=== PATIENT | female | born 1940 | race Caucasian/White ===

== ENCOUNTER 2018-09-24 15:22 | Observation (INO) | payer MEDICARE ==
[2018-09-24] MEDS ORDERED: SODIUM CHLORIDE 0.9% 1,000 ML IV STA (16:04)
--- NOTE | 2018-09-24 16:06 | ED ---
Dizziness HPI - General Chief Complaint: Dizziness Stated Complaint: LBP Time Seen by Provider: 09/24/18 15:35 Source: patient Mode of arrival: wheelchair Limitations: no limitations - History of Present Illness Initial Comments: Patient is a 77-year-old female presenting for lightheadedness and low blood pressure. Patient states that this morning, her blood pressure was 90/50 and she was so lightheaded and dizzy. She denies any chest pain or shortness breath as well as nausea/vomiting/diarrhea. She states that she had knee surgery back in mid August but has not had any complications from that. - Related Data Home Medications Medication Instructions Recorded Confirmed metFORMIN HCL [Glucophage] 1,000 mg PO BID 05/20/14 09/24/18 Aspirin EC [Ecotrin] 325 mg PO DAILY PRN 09/24/18 09/24/18 Levothyroxine Sodium [Synthroid] 50 mcg PO DAILY 09/24/18 09/24/18 Losartan Potassium 50 mg PO DAILY 09/24/18 09/24/18 Potassium Chloride 8 meq PO DAILY 09/24/18 09/24/18 Simvastatin [Zocor] 20 mg PO HS 09/24/18 09/24/18 Triamterene/Hydrochlorothiazid 1 tab PO DAILY 09/24/18 09/24/18 [Triamterene-Hctz 75-50 mg Tab] Allergies Allergy/AdvReac Type Severity Reaction Status Date / Time codeine Allergy Unknown Verified 09/24/18 16:33 Review of Systems ROS Statement: Those systems with pertinent positive or pertinent negative responses have been documented in the HPI. Constitutional: Negative for chills, fatigue and fever. HENT: Negative for congestion. Respiratory: Negative for chest tightness, and wheezing. Negative for cough and positive for shortness breath Cardiovascular: Negative for chest pain and palpitations. Gastrointestinal: Negative for abdominal pain. Negative for abdominal distention, diarrhea, nausea and vomiting. Genitourinary: Negative for dysuria. Musculoskeletal: Negative for back pain, neck pain and neck stiffness. Skin: Negative for color change. Neurological: Negative for dizziness, speech difficulty, weakness and positive for light-headedness. Psychiatric/Behavioral: Negative for agitation and confusion. Negative for anxiety ROS Other: All systems not noted in ROS Statement are negative. Past Medical History Past Medical History: Cancer, Diabetes Mellitus, Hypertension Additional Past Medical History / Comment(s): cervical cancer History of Any Multi-Drug Resistant Organisms: None Reported Past Surgical History: Orthopedic Surgery Past Psychological History: No Psychological Hx Reported Smoking Status: Current every day smoker Past Alcohol Use History: None Reported Past Drug Use History: None Reported General Exam - General Exam Comments Initial Comments: Constitutional: Pt appears well-developed and well-nourished. No distress. Head: Normocephalic and atraumatic. Eyes: EOM are normal. Neck: Normal range of motion. Neck supple. Cardiovascular: Tachycardia, regular rhythm, S1 normal, S2 normal and normal heart sounds. Exam reveals no gallop and no friction rub. No murmur heard. Pulmonary/Chest: Effort normal and breath sounds normal. No tachypnea and no bradypnea. No respiratory distress. No wheezes or rales noted. Abdominal: Soft. Bowel sounds are normal. Pt exhibits no shifting dullness, no distension, no pulsatile liver, no fluid wave, no abdominal bruit and no ascites. There is no rigidity, no rebound, no guarding, no tenderness at McBurney's point and negative Haynes's sign. There is no tenderness. Musculoskeletal: Normal range of motion. Neurological: Pt is alert and oriented to person, place, and time. No cranial nerve deficit. Skin: Skin is warm and dry. No rash noted. Pt is not diaphoretic. No erythema. No pallor. Psychiatric: Pt has a normal mood and affect. Pt behavior is normal. Thought content normal. Limitations: no limitations Course Vital Signs 09/24/18 09/24/18 09/24/18 15:35 15:38 15:40 Temperature 98.2 F Pulse Rate 105 H 98 Pulse Rate [ Sitting Pecan Picker] Pulse Rate [ Standing Pecan Picker ] Pulse Rate [ Supine Pecan Picker] Respiratory 14 17 Rate Blood Pressure 142/77 142/77 142/77 Blood Pressure [Sitting] Blood Pressure [Standing] Blood Pressure [Supine] O2 Sat by Pulse 86 L 98 98 Oximetry 09/24/18 09/24/18 09/24/18 15:50 16:00 16:30 Temperature Pulse Rate 105 H 85 89 Pulse Rate [ Sitting Pecan Picker] Pulse Rate [ Standing Pecan Picker ] Pulse Rate [ Supine Pecan Picker] Respiratory 20 16 14 Rate Blood Pressure 112/88 109/72 114/65 Blood Pressure [Sitting] Blood Pressure [Standing] Blood Pressure [Supine] O2 Sat by Pulse 98 97 98 Oximetry 09/24/18 09/24/18 09/24/18 16:35 17:00 17:30 Temperature Pulse Rate 77 80 Pulse Rate [ 95 Sitting Pecan Picker] Pulse Rate [ 105 H Standing Pecan Picker ] Pulse Rate [ 72 Supine Pecan Picker] Respiratory 16 20 Rate Blood Pressure 102/73 146/80 Blood Pressure 114/65 [Sitting] Blood Pressure 127/81 [Standing] Blood Pressure 98/50 [Supine] O2 Sat by Pulse 97 99 Oximetry EKG Findings - EKG Comments: EKG Findings:: EKG shows normal sinus rhythm with a rate of 97 bpm, SD interval 190, QRS 82, QTC 474. Medical Decision Making - Medical Decision Making Laboratory studies showed that there is no significant leukocytosis and chest x- ray was unremarkable. However, it was thought that patient was a high risk for pulmonary embolism and d-dimer was performed and showed that it was 2.15. However, GFR was too low to support a CT PE scan. Because of this, VQ scan was performed and showed intermediate probability for pulmonary embolism. It was also indicated that although there are no mismatched defects to suggest pulmonary embolism there are multiple indeterminate that she defects of the uppe r lungs with no corresponding chest x-ray abnormality. Because of this, patient was empirically heparinized or PE.Explained all labs and diagnostic test results and that we will admit patient to hospital. Pt is agreeable to plan and case has been discussed with Dr. Lopez and they agree to accept the pt. - Lab Data Result diagrams: 09/24/18 15:50 09/24/18 15:50 Lab Results 09/24/18 09/24/18 09/24/18 Range/Units 15:50 15:50 15:50 WBC 9.7 (3.8-10.6) k/uL RBC 4.39 (3.80-5.40) m/uL Hgb 13.4 (11.4-16.0) gm/dL Hct 41.5 (34.0-46.0) % MCV 94.5 (80.0-100.0) fL MCH 30.4 (25.0-35.0) pg MCHC 32.2 (31.0-37.0) g/dL RDW 13.7 (11.5-15.5) % Plt Count 264 (150-450) k/uL Neutrophils % 72 % Lymphocytes % 20 % Monocytes % 5 % Eosinophils % 2 % Basophils % 1 % Neutrophils # 7.0 (1.3-7.7) k/uL Lymphocytes # 1.9 (1.0-4.8) k/uL Monocytes # 0.5 (0-1.0) k/uL Eosinophils # 0.2 (0-0.7) k/uL Basophils # 0.1 (0-0.2) k/uL PT 9.8 (9.0-12.0) sec INR 0.9 (<1.2) APTT 18.6 L (22.0-30.0) sec D-Dimer 2.15 H (<0.60) mg/L FEU Sodium 139 (137-145) mmol/L Potassium 4.2 (3.5-5.1) mmol/L Chloride 102 (98-107) mmol/L Carbon Dioxide 22 (22-30) mmol/L Anion Gap 15 mmol/L BUN 30 H (7-17) mg/dL Creatinine 1.36 H (0.52-1.04) mg/dL Est GFR (CKD-EPI)AfAm 44 (>60 ml/min/1.73 sqM) Est GFR (CKD-EPI)NonAf 38 (>60 ml/min/1.73 sqM) Glucose 170 H (74-99) mg/dL Calcium 9.7 (8.4-10.2) mg/dL Magnesium 1.3 L (1.6-2.3) mg/dL Total Bilirubin 0.7 (0.2-1.3) mg/dL AST 23 (14-36) U/L ALT 16 (9-52) U/L Alkaline Phosphatase 63 (38-126) U/L Troponin I (0.000-0.034) ng/mL NT-Pro-B Natriuret Pep pg/mL Total Protein 6.8 (6.3-8.2) g/dL Albumin 4.2 (3.5-5.0) g/dL 09/24/18 09/24/18 Range/Units 15:50 15:50 WBC (3.8-10.6) k/uL RBC (3.80-5.40) m/uL Hgb (11.4-16.0) gm/dL Hct (34.0-46.0) % MCV (80.0-100.0) fL MCH (25.0-35.0) pg MCHC (31.0-37.0) g/dL RDW (11.5-15.5) % Plt Count (150-450) k/uL Neutrophils % % Lymphocytes % % Monocytes % % Eosinophils % % Basophils % % Neutrophils # (1.3-7.7) k/uL Lymphocytes # (1.0-4.8) k/uL Monocytes # (0-1.0) k/uL Eosinophils # (0-0.7) k/uL Basophils # (0-0.2) k/uL PT (9.0-12.0) sec INR (<1.2) APTT (22.0-30.0) sec D-Dimer (<0.60) mg/L FEU Sodium (137-145) mmol/L Potassium (3.5-5.1) mmol/L Chloride (98-107) mmol/L Carbon Dioxide (22-30) mmol/L Anion Gap mmol/L BUN (7-17) mg/dL Creatinine (0.52-1.04) mg/dL Est GFR (CKD-EPI)AfAm (>60 ml/min/1.73 sqM) Est GFR (CKD-EPI)NonAf (>60 ml/min/1.73 sqM) Glucose (74-99) mg/dL Calcium (8.4-10.2) mg/dL Magnesium (1.6-2.3) mg/dL Total Bilirubin (0.2-1.3) mg/dL AST (14-36) U/L ALT (9-52) U/L Alkaline Phosphatase (38-126) U/L Troponin I <0.012 (0.000-0.034) ng/mL NT-Pro-B Natriuret Pep 135 pg/mL Total Protein (6.3-8.2) g/dL Albumin (3.5-5.0) g/dL Disposition Clinical Impression: Pulmonary embolism Disposition: ADMITTED IP TO THIS [facility] Condition: Fair Referrals: Martín Bojorquez MD [Primary Care Provider] - 1-2 days Decision to Admit Reason: Admit from EC Decision Date: 09/24/18 Decision Time: 20:35
[2018-09-24 16:31] LABS: Basophils # (A) 0.1 k/uL (0-0.2); Basophils % (A) 1 %; Eosinophils # (A) 0.2 k/uL (0-0.7); Eosinophils % (A) 2 %; HCT 41.5 % (34.0-46.0); HGB 13.4 gm/dL (11.4-16.0); Lymphocytes # (A) 1.9 k/uL (1.0-4.8); Lymphocytes % (A) 20 %; MCH 30.4 pg (25.0-35.0); MCHC 32.2 g/dL (31.0-37.0); MCV 94.5 fL (80.0-100.0); Monocytes # (A) 0.5 k/uL (0-1.0); Monocytes % (A) 5 %; Neutrophils % (A) 72 %; Platelet Count 264 k/uL (150-450); RBC 4.39 m/uL (3.80-5.40); RDW 13.7 % (11.5-15.5); WBC 9.7 k/uL (3.8-10.6)
--- NOTE | 2018-09-24 16:45 | XR ---
EXAMINATION TYPE: XR chest 2V DATE OF EXAM: 09/24/2018 COMPARISON: NONE HISTORY: Hypertension and chest pain TECHNIQUE: Frontal and lateral views of the chest are obtained. FINDINGS: There is no focal air space opacity, pleural effusion, or pneumothorax seen. The cardiac silhouette size is within normal limits. The osseous structures are intact. Mild multilevel degener ative changes of the thoracic spine are noted. Pulmonary hyperinflation and biapical lucency represen t underlying COPD. IMPRESSION: No acute cardiopulmonary process.
[2018-09-24 16:50] LABS: Albumin 4.2 g/dL (3.5-5.0); Calcium 9.7 mg/dL (8.4-10.2); Magnesium 1.3 mg/dL (1.6-2.3); Total Bilirubin 0.7 mg/dL (0.2-1.3); Total Protein 6.8 g/dL (6.3-8.2)
[2018-09-24 16:51] LABS: Potassium 4.2 mmol/L (3.5-5.1)
[2018-09-24 16:58] LABS: INR 0.9 (<1.2); Prothrombin Time 9.8 sec (9.0-12.0)
[2018-09-24 17:10] LABS: D-Dimer 2.15 mg/L FEU (<0.60); Partial Thromboplastin Time 18.6 sec (22.0-30.0)
--- NOTE | 2018-09-24 19:51 | NM ---
EXAMINATION TYPE: NM pul vent and perfuse DATE OF EXAM: 09/24/2018 COMPARISON: Chest x-ray of the same date HISTORY: Chest pain TECHNIQUE: Utilizing inhalation of 71.2 mCi Tc 99m DTPA aerosol and intravenous injection of 5.29 mC i of Tc 99m MAA, ventilation and perfusion images are acquired post injection in multiple projections . FINDINGS: There are numerous small wedge-shaped matched defects in the upper lungs, right greater than left. Th e defects are slightly more pronounced on the ventilation than perfusion. No central radiotracer clum ping is seen. The lateral views are slightly obscured by the patient's arms. Patchy radiotracer uptak e within the medial left lung appears nonsegmental. No large mismatched defects. IMPRESSION: Intermediate probability for pulmonary embolism. Although there are no mismatch defects to suggest pu lmonary embolus there are multiple indeterminant matched defects of the upper lungs with no correspon ding chest radiograph abnormality.
[2018-09-24] MEDS ORDERED: HEPARIN SODIUM,PORCINE 10,000 UNIT/ML 1 ML VIAL IV ONE (20:12)
[2018-09-24] MEDS ORDERED: HEPARIN SODIUM,PORCINE 5,000 UNIT/ML 1 ML VIAL IV PRN (20:12)
[2018-09-24] MEDS: HEPARIN SOD,PORK IN 0.45% NACL 25,000 UNIT in 0.45% NACL 1 250ML.BAG IV SCH (20:51)
[2018-09-24] MEDS ORDERED: NALOXONE 0.4 MG/ML 1 ML VIAL IV PRN (22:21)
[2018-09-24] MEDS ORDERED: MAGNESIUM HYDROXIDE 2,400 MG/10 ML CUP PO PRN (23:21)
[2018-09-24] MEDS ORDERED: ALPRAZolam 0.25 MG TAB PO PRN (23:21)
[2018-09-24] MEDS ORDERED: LACTULOSE 20 GM/30 ML CUP PO PRN (23:21)
[2018-09-24] MEDS ORDERED: ACETAMINOPHEN TAB 325 MG TAB PO PRN (23:21)
[2018-09-24] MEDS ORDERED: MELATONIN 3 MG TABLET PO PRN (23:21)
[2018-09-24] MEDS ORDERED: ONDANSETRON 4 MG/2 ML VIAL IVP PRN (23:21)
[2018-09-24] MEDS: SODIUM CHLORIDE 0.9% 1,000 ML IV SCH (23:52)
[2018-09-25] MEDS ORDERED: CALCIUM CARBONATE 500 MG CHEWABLE PO PRN
[2018-09-25 06:24] LABS: Glucose,Whole Blood 130 mg/dL (75-99)
[2018-09-25] MEDS: INSULIN ASPART (NovoLOG) 100 UNIT/ML VIAL SQ SCH ×6 (06:29→21:41)
[2018-09-25] MEDS: LEVOTHYROXINE 50 MCG TAB PO SCH (06:56)
[2018-09-25 07:58] LABS: Basophils % (A) 1 %; Eosinophils # (A) 0.2 k/uL (0-0.7); Eosinophils % (A) 3 %; HCT 37.6 % (34.0-46.0); HGB 11.9 gm/dL (11.4-16.0); Lymphocytes # (A) 2.8 k/uL (1.0-4.8); Lymphocytes % (A) 43 %; MCH 30.3 pg (25.0-35.0); MCHC 31.6 g/dL (31.0-37.0); MCV 95.9 fL (80.0-100.0); Mean Platelet Volume 6.6; Monocytes # (A) 0.3 k/uL (0-1.0); Monocytes % (A) 5 %; Neutrophils # (A) 3.1 k/uL (1.3-7.7); Neutrophils % (A) 47 %; Platelet Count 214 k/uL (150-450); RBC 3.92 m/uL (3.80-5.40); RDW 13.5 % (11.5-15.5); WBC 6.6 k/uL (3.8-10.6)
[2018-09-25] MEDS: metFORMIN 500 MG TAB PO SCH ×2 (08:41→21:32)
[2018-09-25] MEDS: POTASSIUM CHLORIDE ER 10 MEQ TAB.ER.PRT PO SCH (08:41)
[2018-09-25] MEDS ORDERED: LOSARTAN 50 MG TAB PO SCH (09:00)
[2018-09-25] MEDS ORDERED: TRIAMTERENE-HCTZ 75-50MG 1 EACH TAB PO SCH (09:00)
[2018-09-25 11:44] LABS: Glucose,Whole Blood 96 mg/dL (75-99)
[2018-09-25 12:12] LABS: Calcium 9.4 mg/dL (8.4-10.2)
--- NOTE | 2018-09-25 12:12 | P.CNPUL ---
History of Present Illness Consult date: 09/25/18 Requesting physician: Eleazar Lopez Reason for consult: other Chief complaint: Dizziness, hypotension History of present illness: This is a 77-year-old white female patient of Dr. Bojorquez, with past medical history of hypertension, diabetes mellitus, who presented emergency department 09/24/2018 with complaints of extreme dizziness, a relatively low blood pressure for the patient 98/50. Patient denied any nausea vomiting or diarrhea. She recently underwent left knee surgery by Dr. Hernandez, subsequently she was discharged to a subacute rehab and recently discharged from the rehab a week and a half ago. Currently staying with her son. She has been weightbearing and ambulatory. He did have a follow-up appointment with Dr. Hernandez, and couple weeks ago she had some fluid withdrawn from her knee in the office, unsure of the amount in the color. Denied any shortness of breath, did have some mild palpitations, no hemoptysis, no chest pain. She does have some swelling in her right leg, and her right knee, no calf tenderness or swelling. No fever or chills, no recent illness. Lab work showed normal CBC, electrolytes were within normal limits, BUN was 30 and creatinine is 1.36, troponin was negative 1, proBNP was 135, ALT AST and alkaline phosphatase were well within normal limits. D-dimer was elevated at 2.15, VQ scan was completed which showed intermediate probability for pulmonary embolism, although there was no mismatch defect to suggest pulmonary embolus there were multiple indeterminant matched defects of the upper lungs. EKG showed normal sinus rhythm with evidence of inferior infarct of undetermined age. Chest x-ray was negative. She was given IV hydration with 1 L of 0.9 normal saline, and her maintenance IV fluids are infusing at a rate of 75 ML per hour, was started on IV heparin for concern of possible pulmonary embolism. On today's exam she is resting comfortably in bed, no complaints of lightheadedness or dizziness, no syncope, no chest pain, room air pulse ox is 98%, blood pressures 105/55. Review of Systems All systems: negative Constitutional: Denies chills, Denies fever Eyes: denies blurred vision, denies pain Ears, nose, mouth and throat: Denies headache, Denies sore throat Cardiovascular: Denies chest pain, Denies shortness of breath Respiratory: Denies cough Gastrointestinal: Denies abdominal pain, Denies diarrhea, Denies nausea, Denies vomiting Genitourinary: Denies dysuria, Denies hematuria Musculoskeletal: Denies myalgias Integumentary: Denies pruritus, Denies rash Neurological: Denies numbness, Denies weakness Psychiatric: Denies anxiety, Denies depression Endocrine: Denies fatigue, Denies weight change Past Medical History Past Medical History: Cancer, Diabetes Mellitus, Hypertension, Thyroid Disorder Additional Past Medical History / Comment(s): cervical cancer, arthritis History of Any Multi-Drug Resistant Organisms: None Reported Past Surgical History: Orthopedic Surgery Additional Past Surgical History / Comment(s): 3 knee replacements and revisions Past Anesthesia/Blood Transfusion Reactions: No Reported Reaction Past Psychological History: No Psychological Hx Reported Smoking Status: Former smoker Past Alcohol Use History: None Reported Additional Past Alcohol Use History / Comment(s): pt. quit smoking 30 years ago Past Drug Use History: None Reported - Past Family History Mother Family Medical History: Cancer, Dementia Additional Family Medical History / Comment(s): pancreatic cancer and alzheimers Medications and Allergies Home Medications Medication Instructions Recorded Confirmed Type metFORMIN HCL [Glucophage] 1,000 mg PO BID 05/20/14 09/24/18 History Aspirin EC [Ecotrin] 325 mg PO DAILY PRN 09/24/18 09/24/18 History Levothyroxine Sodium [Synthroid] 50 mcg PO DAILY 09/24/18 09/24/18 History Losartan Potassium 50 mg PO DAILY 09/24/18 09/24/18 History Potassium Chloride 8 meq PO DAILY 09/24/18 09/24/18 History Simvastatin [Zocor] 20 mg PO HS 09/24/18 09/24/18 History Triamterene/Hydrochlorothiazid 1 tab PO DAILY 09/24/18 09/24/18 History [Triamterene-Hctz 75-50 mg Tab] Allergies Allergy/AdvReac Type Severity Reaction Status Date / Time codeine Allergy Unknown Verified 09/24/18 16:33 Physical Exam Vitals: Vital Signs Temp Pulse Pulse Pulse Pulse Resp BP 09/25/18 08:00 97.8 F 74 18 09/25/18 04:00 98.4 F 82 17 09/25/18 00:00 74 17 09/24/18 22:38 98.2 F 74 17 03/09/19 22:31 78 16 103/54 03/09/19 20:54 71 16 131/61 09/24/18 17:30 80 20 146/80 09/24/18 17:00 77 16 102/73 09/24/18 16:35 95 105 H 72 09/24/18 16:30 89 14 114/65 09/24/18 16:00 85 16 109/72 09/24/18 15:50 105 H 20 112/88 09/24/18 15:40 98 17 142/77 09/24/18 15:38 98.2 F 105 H 14 142/77 09/24/18 15:35 142/77 BP BP BP Pulse Ox 09/25/18 08:00 105/55 98 09/25/18 04:00 116/63 97 09/25/18 00:00 09/24/18 22:38 93/42 95 09/24/18 22:31 98 09/24/18 20:54 97 09/24/18 17:30 99 09/24/18 17:00 97 09/24/18 16:35 114/65 127/81 98/50 09/24/18 16:30 98 09/24/18 16:00 97 09/24/18 15:50 98 09/24/18 15:40 98 09/24/18 15:38 98 09/24/18 15:35 86 L Intake and Output 09/24/18 09/25/18 09/25/18 21:59 06:59 14:59 Intake Total 240 Balance 240 Intake: Intake, IV Titration Amount Heparin Sod,Pork in 0.45% NaCl 25,000 unit In 0.45 % NaCl 1 250ml.bag @ 18 UNITS/KG/HR 12.6 mls/hr IV .[id number] [facility] Rx#: [id number] Oral 240 Other: Voiding Method Toilet # Voids Weight GENERAL EXAM: Alert, pleasant, 77-year-old white female, on room air, comfortable in no apparent distress. HEAD: Normocephalic/atraumatic. EYES: Normal reaction of pupils, equal size. Conjunctiva pink, sclera white. NOSE: Clear with pink turbinates. THROAT: No erythema or exudates. NECK: No masses, no JVD, no thyroid enlargement, no adenopathy. CHEST: No chest wall deformity. Symmetrical expansion. LUNGS: Equal air entry with no crackles, wheeze, rhonchi or dullness. CVS: Regular rate and rhythm, normal S1 and S2, no gallops, no murmurs, no rubs ABDOMEN: Soft, nontender. No hepatosplenomegaly, normal bowel sounds, no guarding or rigidity. EXTREMITIES: No clubbing, mild nonpitting left knee and left leg edema, no cyanosis, 2+ pulses and upper and lower extremities. No calf tenderness MUSCULOSKELETAL: Muscle strength and tone normal. SPINE: No scoliosis or deformity SKIN: No rashes CENTRAL NERVOUS SYSTEM: Alert and oriented -3. No focal deficits, tone is normal in all 4 extremities. PSYCHIATRIC: Alert and oriented -3. Appropriate affect. Intact judgment and insight. Results - Laboratory Findings CBC and BMP: 09/25/18 07:16 09/24/18 15:50 PT/INR, D-dimer PT 9.8 sec (9.0-12.0) 09/24/18 15:50 INR 0.9 (<1.2) 09/24/18 15:50 D-Dimer 2.15 mg/L FEU (<0.60) H 09/24/18 15:50 Abnormal lab findings: Abnormal Labs 09/24/18 09/24/18 09/25/18 15:50 15:50 03:00 APTT 18.6 L 96.1 H D-Dimer 2.15 H BUN 30 H Creatinine 1.36 H Glucose 170 H POC Glucose (mg/dL) Magnesium 1.3 L 09/25/18 06:13 APTT D-Dimer BUN Creatinine Glucose POC Glucose (mg/dL) 130 H Magnesium - Diagnostic Findings Chest x-ray: report reviewed, image reviewed Additional studies: EKG reviewed Assessment and Plan Plan: Assessment: #1. Dizziness, relative hypotension blood pressure of 90/50 could be related to smith #2. Acute kidney injury due to dehydration #3. Elevated d-dimer, and a VQ scan showed intermediate probability for pulmonary embolus with no mismatch defects to suggest pulmonary embolus. Showed multiple indeterminate mass defects of the upper lungs, could be related to patient's history of emphysema/COPD #4. Recent left knee surgery within a half ago at [facility] by Dr. Hernandez, and subsequent left arthrocentesis #5. History of bilateral replacements #6. Hypertension #7. Diabetes mellitus #8. History of cervical cancer #9. COPD, seen on previous CT chest/abdomen/pelvis #10. Former smoker Plan: We'll continue with IV hydration, if the renal profile recovers we'll consider CT angios chest. Obtain Doppler ultrasound of the lower extremities to rule out DVT. We'll continue with heparin drip for now. VQ scan showed only intermediate probability for PE, and d-dimer elevation is nonspecific, doubt possibility of PE, but we'll continue with anticoagulation. Patient's vitals are stable, no fever or chills, she denies any cough, denies any chest pain, denies any shortness of breath or hemoptysis, no hypoxemia, she is not tachycardic. We'll continue current medical treatment I performed a history & physical examination of the patient and discussed their management with my nurse practitioner, Rere Licona. I reviewed the nurse practitioner's note and agree with the documented findings and plan of care. Lung sounds are positive for clear. The findings and the impression was discussed with the patient. I attest to the documentation by the nurse practitioner. Time with Patient: Greater than 30
--- NOTE | 2018-09-25 12:33 | US ---
EXAMINATION TYPE: US venous doppler duplex LE DATE OF EXAM: 09/25/2018 12:16 PM COMPARISON: NONE CLINICAL HISTORY: questionable pe recent lt tka. Possible PE, left knee replacement in [place] SIDE PERFORMED: Bilateral TECHNIQUE: The lower extremity deep venous system is examined utilizing real time linear array sonog martín with graded compression, doppler sonography and color-flow sonography. VESSELS IMAGED: External Iliac Vein (EIV) Common Femoral Vein Deep Femoral Vein Greater Saphenous Vein * Femoral Vein Popliteal Vein Small Saphenous Vein * Proximal Calf Veins (* superficial vessels) There is normal flow, compressibility, vascular waveforms. Right Leg: Negative for DVT Left Leg: Negative for DVT IMPRESSION: No evident deep venous thrombosis at or above the knees, follow-up as indicated
[2018-09-25] MEDS: HEPARIN SOD,PORK IN 0.45% NACL 25,000 UNIT in 0.45% NACL 1 250ML.BAG IV SCH ×2 (15:17→17:44)
[2018-09-25 16:15] LABS: Glucose,Whole Blood 133 mg/dL (75-99)
--- NOTE | 2018-09-25 16:23 | HP ---
HISTORY AND PHYSICAL DATE OF ADMISSION: September 24, 2018 DATE OF SERVICE: September 25, 2018. PRESENTING COMPLAINT: Dizzy. HISTORY OF PRESENTING COMPLAINT: This is a pleasant 77 -year-old patient of Dr. Bojorquez. Chronic stable medical conditions include diabetes, hypertension, hypothyroid, osteoarthritis. On August 16, patient did undergo left knee replacement at an outside hospital. Yesterday morning, she felt really dizzy, especially when she was moving about. There was no change in vision. No focal weakness. No nausea, vomiting. No headache. No change in speech. After several hours, the symptoms actually got better. The patient when presented, blood pressure was 142/77. The patient in the ER, did have a V/Q scan that shows intermediate probability. He was started on IV heparin to rule out a PE for possible PE. Admitted for the same. Pulmonary was consulted. The patient had minimal swelling of the left leg. No more than she has had after surgery. There was no shortness of breath. No pleuritic chest pain. REVIEW OF SYSTEMS: CONSTITUTIONAL: None. RESPIRATORY: None. CARDIOVASCULAR: None. GASTROINTESTINAL: None. GENITOURINARY: None. MUSCULOSKELETAL: Arthritic pain in joints. DERMATOLOGICAL, HEMATOLOGIC, LYMPHATICS: none. PSYCHIATRY none. NEUROLOGICAL: None. HEENT as above. PAST MEDICAL HISTORY: Diabetes mellitus type 2, hypertension, hypothyroid, cervical cancer, osteoarthritis. PAST SURGICAL HISTORY: replacement, left knee replacement August 16. SOCIAL HISTORY: The patient stopped smoking 30 years ago. Lives by herself. No alcohol. FAMILY HISTORY: Dementia, pancreatic cancer, Alzheimer's. HOME MEDICATIONS: 1. Zocor 20 mg q.h.s. 2. Synthroid 50 mcg a day. 3. Aspirin 325 p.o. daily p.r.n. 4. Glucophage 1000 mg p.o. b.i.d. 5. Triamterene hydrochlorothiazide 75/50 1 tab p.o. daily. 6. Potassium 8 mEq a day. 7. Losartan 50 mg p.o. daily. ALLERGIES: CODEINE. PHYSICAL EXAMINATION: Vital signs on presentation: Temperature 98.2, pulse 105, respiration 14, blood pressure 112/88, pulse ox 98% on room air. GENERAL APPEARANCE: Average built, sitting up, a bit tired. EYES: Pupils are equal. Conjunctivae normal. HEENT: External appearance of nose and ears normal. Oral cavity normal. NECK: JVD not raised. Mass not palpable. RESPIRATORY: Effort normal. Lungs are clear. CARDIOVASCULAR: First and second sounds normal. No edema. ABDOMEN: Soft, nontender. Liver and spleen not palpable. LYMPHATIC: No lymph nodes palpable in the neck and axilla. PSYCHIATRY: Alert and oriented x3. Mood and affect normal. NEUROLOGICAL: Pupils equal. Cranial nerves grossly intact. Power and sensation grossly intact. MUSCULOSKELETAL: Evidence of osteoarthritis especially in the hands. Incision of the left knee is healing well. Minimal left leg swelling compared to the right. INVESTIGATIONS: White count 9.7, hemoglobin 13.4, potassium 4.2, BUN 30, creatinine 1.36. EKG tracing personally reviewed by me showed normal sinus rhythm. Chest x-ray film personally reviewed by me shows some hyperinflation. Lung lockett are clear. V/Q scan shows intermediate probability showing match defects. Venous Doppler lower extremity both legs negative for DVT. ASSESSMENT: 1. Episode of acute dizziness, positional, possibly benign paroxysmal positional vertigo, which did improve. 2. Probably acute renal failure with a creatinine 1.36. The patient being on diuretics and also on ARBS. 3. Diabetes mellitus type 2 on oral hypoglycemics. 4. Essential hypertension. 5. Hypothyroidism. 6. Primary osteoarthritis. 7. Intermediate V/Q scan. The patient denies any pulmonary symptoms. I highly doubt the patient has got PE. Pulmonary consult was also done. 8. IV heparin monitoring. At this point, we will hydrate the patient. We will hold off patient's diuretics that she takes at home Cozaar. If renal function is better by tomorrow, we will do CT chest PE protocol to rule out PE. In the meantime, we will keep the patient on IV heparin. Care was discussed with the patient. Questions were answered. Copy to Dr. Bojorquez. [id number] / IJN: [id number] /
[2018-09-25 21:24] LABS: Glucose,Whole Blood 133 mg/dL (75-99)
[2018-09-25] MEDS: ATORVASTATIN 10 MG TAB PO SCH (21:43)
[2018-09-25] MEDS: SODIUM CHLORIDE 0.9% 1,000 ML IV SCH (21:44)
[2018-09-26 06:20] LABS: Glucose,Whole Blood 136 mg/dL (75-99)
[2018-09-26] MEDS: INSULIN ASPART (NovoLOG) 100 UNIT/ML VIAL SQ SCH ×4 (06:25→20:10)
[2018-09-26 06:30] LABS: Basophils % (A) 1 %; Eosinophils # (A) 0.2 k/uL (0-0.7); Eosinophils % (A) 4 %; HCT 34.5 % (34.0-46.0); HGB 11.1 gm/dL (11.4-16.0); Lymphocytes # (A) 2.1 k/uL (1.0-4.8); Lymphocytes % (A) 45 %; MCH 30.7 pg (25.0-35.0); MCHC 32.2 g/dL (31.0-37.0); MCV 95.3 fL (80.0-100.0); Mean Platelet Volume 7.2; Monocytes # (A) 0.3 k/uL (0-1.0); Monocytes % (A) 6 %; Neutrophils % (A) 42 %; Platelet Count 189 k/uL (150-450); RBC 3.62 m/uL (3.80-5.40); RDW 13.6 % (11.5-15.5); WBC 4.7 k/uL (3.8-10.6)
[2018-09-26 07:47] LABS: Calcium 9.7 mg/dL (8.4-10.2); Potassium 4.2 mmol/L (3.5-5.1)
[2018-09-26] MEDS: POTASSIUM CHLORIDE ER 10 MEQ TAB.ER.PRT PO SCH (07:59)
[2018-09-26] MEDS: LEVOTHYROXINE 50 MCG TAB PO SCH (07:59)
[2018-09-26] MEDS: metFORMIN 500 MG TAB PO SCH (08:01)
[2018-09-26 11:14] LABS: Glucose,Whole Blood 135 mg/dL (75-99)
[2018-09-26] MEDS: HEPARIN SOD,PORK IN 0.45% NACL 25,000 UNIT in 0.45% NACL 1 250ML.BAG IV SCH (13:53)
[2018-09-26] MEDS: SODIUM CHLORIDE 0.9% 1,000 ML IV SCH (13:55)
--- NOTE | 2018-09-26 14:25 | P.PN ---
Subjective Progress Note Date: 09/26/18 Principal diagnosis: Dizziness, hypotension, acute kidney injury, elevated d-dimer, possible PE This is a 77-year-old white female patient of Dr. Bojorquez, with past medical history of hypertension, diabetes mellitus, who presented emergency department 09/24/2018 with complaints of extreme dizziness, a relatively low blood pressure for the patient 98/50. Patient denied any nausea vomiting or diarrhea. She recently underwent left knee surgery by Dr. Hernandez, subsequently she was discharged to a subacute rehab and recently discharged from the rehab a week and a half ago. Currently staying with her son. She has been weightbearing and ambulatory. He did have a follow-up appointment with Dr. Hernandez, and couple weeks ago she had some fluid withdrawn from her knee in the office, unsure of the amount in the color. Denied any shortness of breath, did have some mild palpitations, no hemoptysis, no chest pain. She does have some swelling in her right leg, and her right knee, no calf tenderness or swelling. No fever or chills, no recent illness. Lab work showed normal CBC, electrolytes were within normal limits, BUN was 30 and creatinine is 1.36, troponin was negative 1, proBNP was 135, ALT AST and alkaline phosphatase were well within normal limits. D-dimer was elevated at 2.15, VQ scan was completed which showed intermediate probability for pulmonary embolism, although there was no mismatch defect to suggest pulmonary embolus there were multiple indeterminant matched defects of the upper lungs. EKG showed normal sinus rhythm with evidence of inferior infarct of undetermined age. Chest x-ray was negative. She was given IV hydration with 1 L of 0.9 normal saline, and her maintenance IV fluids are infusing at a rate of 75 ML per hour, was started on IV heparin for concern of possible pulmonary embolism. On today's exam she is resting comfortably in bed, no complaints of lightheadedness or dizziness, no syncope, no chest pain, room air pulse ox is 98%, blood pressures 105/55. On 09/26/2018 patient seen in follow-up on selective care unit, she is resting comfortably in bed, no pulmonary complaints, no chest pain, no shortness of breath, she is on room air pulse ox of 100%, hemodynamically stable, no complaints of lightheadedness or dizziness, she still getting IV hydration, will 0.9 normal seen at a rate of 75 ML per hour, and today's labs show improvement in patient's renal profile, with BUN down to 18, and creatinine is at 1.08. She remains on heparin drip weight-based protocol for possibility of pulmonary embolism. Lung sounds are clear to auscultation, lower extremity Dopplers were negative for DVTs. Objective - Vital Signs Vital signs: Vital Signs Temp 98.2 F 09/26/18 12:00 Pulse 68 09/26/18 12:00 Resp 16 09/26/18 12:00 BP 127/73 09/26/18 12:00 Pulse Ox 100 09/26/18 12:00 Intake & Output 09/25/18 09/26/18 09/26/18 18:59 06:59 18:59 Intake Total 999.365 1943.513 Output Total 600 Balance -38.256 1701.513 Weight 75.7 kg Intake: IV 470 Invasive Line 2 20 Sodium Chloride 0.9% 1, 450 000 ml @ 75 mls/hr IV . [id number] RHEA Rx#:[id number] Intake, IV Titration 81.744 149.513 Amount Heparin Sod,Pork in 0.45% 81.744 149.513 NaCl 25,000 unit In 0.45 % NaCl 1 250ml.bag @ 18 UNITS/KG/HR 12.6 mls/hr IV .[id number] RHEA Rx#: [id number] Oral 480 1082 Output: Urine 600 Other: Voiding Method Toilet Toilet Toilet # Voids 1 - Exam GENERAL EXAM: Alert, pleasant, 77-year-old white female, on room air, comfortable in no apparent distress. HEAD: Normocephalic/atraumatic. EYES: Normal reaction of pupils, equal size. Conjunctiva pink, sclera white. NOSE: Clear with pink turbinates. THROAT: No erythema or exudates. NECK: No masses, no JVD, no thyroid enlargement, no adenopathy. CHEST: No chest wall deformity. Symmetrical expansion. LUNGS: Equal air entry with no crackles, wheeze, rhonchi or dullness. CVS: Regular rate and rhythm, normal S1 and S2, no gallops, no murmurs, no rubs ABDOMEN: Soft, nontender. No hepatosplenomegaly, normal bowel sounds, no guard ing or rigidity. EXTREMITIES: No clubbing, mild nonpitting left knee and left leg edema, no cyanosis, 2+ pulses and upper and lower extremities. No calf tenderness MUSCULOSKELETAL: Muscle strength and tone normal. SPINE: No scoliosis or deformity SKIN: No rashes CENTRAL NERVOUS SYSTEM: Alert and oriented -3. No focal deficits, tone is normal in all 4 extremities. PSYCHIATRIC: Alert and oriented -3. Appropriate affect. Intact judgment and insight. - Labs CBC & Chem 7: 09/26/18 06:10 09/26/18 06:10 Labs: Abnormal Lab Results - Last 24 Hours (Table) 09/25/18 09/25/18 09/26/18 Range/Units 16:11 21:01 06:10 RBC 3.62 L (3.80-5.40) m/uL Hgb 11.1 L (11.4-16.0) gm/dL APTT (22.0-30.0) sec Chloride (98-107) mmol/L BUN (7-17) mg/dL Creatinine (0.52-1.04) mg/dL Glucose (74-99) mg/dL POC Glucose (mg/dL) 133 H 133 H (75-99) mg/dL 09/26/18 09/26/18 09/26/18 Range/Units 06:10 06:10 06:12 RBC (3.80-5.40) m/uL Hgb (11.4-16.0) gm/dL APTT 57.0 H (22.0-30.0) sec Chloride 108 H (98-107) mmol/L BUN 18 H (7-17) mg/dL Creatinine 1.08 H (0.52-1.04) mg/dL Glucose 136 H (74-99) mg/dL POC Glucose (mg/dL) 136 H (75-99) mg/dL 09/26/18 Range/Units 11:09 RBC (3.80-5.40) m/uL Hgb (11.4-16.0) gm/dL APTT (22.0-30.0) sec Chloride (98-107) mmol/L BUN (7-17) mg/dL Creatinine (0.52-1.04) mg/dL Glucose (74-99) mg/dL POC Glucose (mg/dL) 135 H (75-99) mg/dL Assessment and Plan Plan: Assessment: #1. Dizziness, relative hypotension blood pressure of 90/50 could be related to smith #2. Acute kidney injury due to dehydration #3. Elevated d-dimer, and a VQ scan showed intermediate probability for pulmonary embolus with no mismatch defects to suggest pulmonary embolus. Showed multiple indeterminate mass defects of the upper lungs, could be related to patient's history of emphysema/COPD #4. Recent left knee surgery within a half ago at [facility] by Dr. Hernandez, and subsequent left arthrocentesis #5. History of bilateral replacements #6. Hypertension #7. Diabetes mellitus #8. History of cervical cancer #9. COPD, seen on previous CT chest/abdomen/pelvis #10. Former smoker Plan: Continue current medical treatment, continue IV hydration, anticipate further improvement of renal profile, and we will possibly complete CT angios of the chest tomorrow to rule out pulmonary embolism, for now continue heparin drip. Patient denies any pulmonary complaints, no lightheadedness or dizziness, vital signs are stable, no chest pain, maintaining good oxygenation on room air. I performed a history & physical examination of the patient and discussed their management with my nurse practitioner, Rere Licona. I reviewed the nurse practitioner's note and agree with the documented findings and plan of care. Lung sounds are positive for clear. The findings and the impression was d iscussed with the patient. I attest to the documentation by the nurse practitioner. Time with Patient: Less than 30
[2018-09-26 17:15] LABS: Glucose,Whole Blood 132 mg/dL (75-99)
[2018-09-26 20:11] LABS: Glucose,Whole Blood 131 mg/dL (75-99)
[2018-09-26] MEDS: ATORVASTATIN 10 MG TAB PO SCH (20:19)
[2018-09-27] MEDS: SODIUM CHLORIDE 0.9% 1,000 ML IV SCH ×2 (00:54→10:50)
[2018-09-27 06:17] LABS: Glucose,Whole Blood 133 mg/dL (75-99)
[2018-09-27] MEDS: INSULIN ASPART (NovoLOG) 100 UNIT/ML VIAL SQ SCH ×2 (06:30→11:54)
[2018-09-27] MEDS: LEVOTHYROXINE 50 MCG TAB PO SCH (06:31)
[2018-09-27 06:47] LABS: Basophils % (A) 1 %; Eosinophils # (A) 0.1 k/uL (0-0.7); Eosinophils % (A) 3 %; HCT 34.1 % (34.0-46.0); HGB 10.6 gm/dL (11.4-16.0); Lymphocytes # (A) 2.3 k/uL (1.0-4.8); Lymphocytes % (A) 47 %; MCH 30.1 pg (25.0-35.0); MCHC 31.3 g/dL (31.0-37.0); MCV 96.2 fL (80.0-100.0); Mean Platelet Volume 6.8; Monocytes # (A) 0.3 k/uL (0-1.0); Monocytes % (A) 6 %; Neutrophils # (A) 2.1 k/uL (1.3-7.7); Neutrophils % (A) 42 %; Platelet Count 182 k/uL (150-450); RBC 3.54 m/uL (3.80-5.40); RDW 13.7 % (11.5-15.5); WBC 4.9 k/uL (3.8-10.6)
[2018-09-27 07:23] LABS: Calcium 9.1 mg/dL (8.4-10.2); Potassium 4.2 mmol/L (3.5-5.1)
[2018-09-27] MEDS: POTASSIUM CHLORIDE ER 10 MEQ TAB.ER.PRT PO SCH (08:06)
[2018-09-27] MEDS: HEPARIN SOD,PORK IN 0.45% NACL 25,000 UNIT in 0.45% NACL 1 250ML.BAG IV SCH (10:47)
--- NOTE | 2018-09-27 11:38 | CT ---
EXAMINATION TYPE: CT chest angio for PE DATE OF EXAM: 09/27/2018 COMPARISON: 10/06/2013 HISTORY: Chest pain CT DLP: 254.6 mGycm Automated exposure control for dose reduction was used. CONTRAST: CT Chest for pulmonary embolism performed with with IV Contrast, patient injected with 80 mL of Isovu e 370. FINDINGS: LUNGS: Emphysematous changes are noted. No pneumothorax. Apical pleural thickening noted. No consolid ation or pleural effusion. Mild basilar bronchiectasis. Subpleural nodule at the left lung base measu ring 5 mm. Additional adjacent 2 mm subpleural nodule. Linear changes most typical of atelectasis or scar. On axial image 87 also is a 5 mm subpleural nodule right lower lobe posteriorly. MEDIASTINUM: There is satisfactory enhancement of the pulmonary artery and its branches, there is no CT evidence for pulmonary embolism. There are no greater than 1 cm hilar or mediastinal lymph nodes. No pericardial effusion is seen. Aorta measures 3.5 to 3.6 cm there is atherosclerotic changes sm all hiatal hernia noted. Coronary artery calcification. OTHER: Hypertrophic and degenerative change of the vertebral column. Vertebral body hemangioma to de finitely noted mid to upper thoracic spine. IMPRESSION: 1. No CT evidence of pulmonary emphysema. 2. New bilateral 5 mm subpleural nodule left lower lobe. Recommend 3 month follow-up CT scan to confi stability. 3. COPD. 4. Coronary artery atherosclerotic changes.
[2018-09-27 11:47] LABS: Glucose,Whole Blood 100 mg/dL (75-99)
[2018-09-27 12:02] VITALS: RESP 17
[2018-09-27] MEDS ORDERED: SODIUM CHLORIDE 0.9% 1,000 ML IV SCH (12:30)
--- NOTE | 2018-09-27 13:21 | P.PN ---
Subjective Progress Note Date: 09/27/18 Principal diagnosis: Dizziness, hypotension, acute kidney injury, elevated d-dimer, possible PE This is a 77-year-old white female patient of Dr. Bojorquez, with past medical history of hypertension, diabetes mellitus, who presented emergency department 09/24/2018 with complaints of extreme dizziness, a relatively low blood pressure for the patient 98/50. Patient denied any nausea vomiting or diarrhea. She recently underwent left knee surgery by Dr. Hernandez, subsequently she was discharged to a subacute rehab and recently discharged from the rehab a week and a half ago. Currently staying with her son. She has been weightbearing and ambulatory. He did have a follow-up appointment with Dr. Hernandez, and couple weeks ago she had some fluid withdrawn from her knee in the office, unsure of the amount in the color. Denied any shortness of breath, did have some mild palpitations, no hemoptysis, no chest pain. She does have some swelling in her right leg, and her right knee, no calf tenderness or swelling. No fever or chills, no recent illness. Lab work showed normal CBC, electrolytes were within normal limits, BUN was 30 and creatinine is 1.36, troponin was negative 1, proBNP was 135, ALT AST and alkaline phosphatase were well within normal limits. D-dimer was elevated at 2.15, VQ scan was completed which showed intermediate probability for pulmonary embolism, although there was no mismatch defect to suggest pulmonary embolus there were multiple indeterminant matched defects of the upper lungs. EKG showed normal sinus rhythm with evidence of inferior infarct of undetermined age. Chest x-ray was negative. She was given IV hydration with 1 L of 0.9 normal saline, and her maintenance IV fluids are infusing at a rate of 75 ML per hour, was started on IV heparin for concern of possible pulmonary embolism. On today's exam she is resting comfortably in bed, no complaints of lightheadedness or dizziness, no syncope, no chest pain, room air pulse ox is 98%, blood pressures 105/55. On 09/26/2018 patient seen in follow-up on selective care unit, she is resting comfortably in bed, no pulmonary complaints, no chest pain, no shortness of breath, she is on room air pulse ox of 100%, hemodynamically stable, no complaints of lightheadedness or dizziness, she still getting IV hydration, will 0.9 normal seen at a rate of 75 ML per hour, and today's labs show improvement in patient's renal profile, with BUN down to 18, and creatinine is at 1.08. She remains on heparin drip weight-based protocol for possibility of pulmonary embolism. Lung sounds are clear to auscultation, lower extremity Dopplers were negative for DVTs. On 09/27/2018 patient seen in follow-up on selective care unit, she is resting comfortably in bed, on room air, with a pulse ox of 98%, vital signs are stable, no complaints of chest pain, no shortness of breath, no hemoptysis, today's labs have been reviewed, and the CT angios of the chest has been reviewed, and showed no evidence of pulmonary emphysema, and a new bilateral 5 mm subpleural nodule in the left lower lobe, which will be followed on an outpatient basis. No hypotension, vital signs have been stable, no dizziness or lightheadedness. From pulmonary perspective can discontinue the heparin drip, and discharge pa tient home Objective - Vital Signs Vital signs: Vital Signs Temp 97.2 F L 09/27/18 12:00 Pulse 68 09/27/18 12:00 Resp 17 09/27/18 12:00 BP 136/65 09/27/18 12:00 Pulse Ox 98 09/27/18 12:00 Intake & Output 09/26/18 09/27/18 09/27/18 18:59 06:59 18:59 Intake Total 2398.613 910 703.027 Balance 2398.613 910 703.027 Weight 71 kg Intake: IV 930 10 20 Invasive Line 2 30 10 20 Sodium Chloride 0.9% 1, 900 000 ml @ 75 mls/hr IV . [id number] RHEA Rx#:[id number] Intake, IV Titration 186.613 450 183.027 Amount Heparin Sod,Pork in 0.45% 186.613 183.027 NaCl 25,000 unit In 0.45 % NaCl 1 250ml.bag @ 18 UNITS/KG/HR 12.6 mls/hr IV .[id number] RHEA Rx#: [id number] Sodium Chloride 0.9% 1, 450 000 ml @ 75 mls/hr IV . [id number] RHEA Rx#:[id number] Oral 1282 450 500 Other: Voiding Method Toilet Toilet Toilet # Voids 2 0 - Exam GENERAL EXAM: Alert, pleasant, 77-year-old white female, on room air, comfortable in no apparent distress. HEAD: Normocephalic/atraumatic. EYES: Normal reaction of pupils, equal size. Conjunctiva pink, sclera white. NOSE: Clear with pink turbinates. THROAT: No erythema or exudates. NECK: No masses, no JVD, no thyroid enlargement, no adenopathy. CHEST: No chest wall deformity. Symmetrical expansion. LUNGS: Equal air entry with no crackles, wheeze, rhonchi or dullness. CVS: Regular rate and rhythm, normal S1 and S2, no gallops, no murmurs, no rubs ABDOMEN: Soft, nontender. No hepatosplenomegaly, normal bowel sounds, no guarding or rigidity. EXTREMITIES: No clubbing, mild nonpitting left knee and left leg edema, no cyanosis, 2+ pulses and upper and lower extremities. No calf tenderness MUSCULOSKELETAL: Muscle strength and tone normal. SPINE: No scoliosis or deformity SKIN: No rashes CENTRAL NERVOUS SYSTEM: Alert and oriented -3. No focal deficits, tone is normal in all 4 extremities. PSYCHIATRIC: Alert and oriented -3. Appropriate affect. Intact judgment and insight. - Labs CBC & Chem 7: 09/27/18 06:32 09/27/18 06:32 Labs: Abnormal Lab Results - Last 24 Hours (Table) 09/26/18 09/26/18 09/26/18 Range/Units 16:47 18:40 20:10 RBC (3.80-5.40) m/uL Hgb (11.4-16.0) gm/dL APTT 53.4 H (22.0-30.0) sec Chloride (98-107) mmol/L BUN (7-17) mg/dL Creatinine (0.52-1.04) mg/dL Glucose (74-99) mg/dL POC Glucose (mg/dL) 132 H 131 H (75-99) mg/dL 09/27/18 09/27/18 09/27/18 Range/Units 06:16 06:32 06:32 RBC 3.54 L (3.80-5.40) m/uL Hgb 10.6 L (11.4-16.0) gm/dL APTT 60.0 H (22.0-30.0) sec Chloride (98-107) mmol/L BUN (7-17) mg/dL Creatinine (0.52-1.04) mg/dL Glucose (74-99) mg/dL POC Glucose (mg/dL) 133 H (75-99) mg/dL 09/27/18 09/27/18 Range/Units 06:32 11:45 RBC (3.80-5.40) m/uL Hgb (11.4-16.0) gm/dL APTT (22.0-30.0) sec Chloride 110 H (98-107) mmol/L BUN 18 H (7-17) mg/dL Creatinine 1.06 H (0.52-1.04) mg/dL Glucose 127 H (74-99) mg/dL POC Glucose (mg/dL) 100 H (75-99) mg/dL Assessment and Plan Plan: Assessment: #1. Dizziness, relative hypotension blood pressure of 90/50 could be related to smith #2. Acute kidney injury due to dehydration, improved hydration #3. Elevated d-dimer, and a VQ scan showed intermediate probability for pulmonary embolus with no mismatch defects to suggest pulmonary embolus. Showed multiple indeterminate mass defects of the upper lungs, could be related to patient's history of emphysema/COPD. EKG changes of the chest on 09/27/2018 ruled out pulmonary embolism #4. 5 mm subpleural nodule in the left lower lobe, this will be followed on outpatient basis #5. Recent left knee surgery within a half ago at [facility] by Dr. Hernandez, and subsequent left arthrocentesis #6. History of bilateral replacements #7. Hypertension #8. Diabetes mellitus #9. History of cervical cancer #10. COPD, seen on previous CT chest/abdomen/pelvis #11. Former smoker Plan: CT angios has ruled out pulmonary embolism. Discontinue heparin, patient can be discharged home, vital signs have been stable, no fever or chills, no hypotension. He'll need outpatient follow-up with Dr. Antunez in the office, CT chest also noted to pleural nodules in the left lower lobe, 5 mm, will be followed up on outpatient basis. I performed a history & physical examination of the patient and discussed their management with my nurse practitioner, Rere Licona. I reviewed the nurse practitioner's note and agree with the documented findings and plan of care. Lung sounds are positive for clear. The findings and the impression was discussed with the patient. I attest to the documentation by the nurse practitioner. Time with Patient: Less than 30
[2018-09-27 15:31] VITALS: BP 131/67; PULSE 74; TEMP 97.7
[2018-09-27 16:48] LABS: Glucose,Whole Blood 178 mg/dL (75-99)
--- NOTE | 2018-09-29 14:36 | PN ---
PROGRESS NOTE DATE OF SERVICE: 09/26/2018 PRESENTING COMPLAINT: Dizziness. INTERVAL HISTORY: This patient was seen by me on 09/26/2018. Presented with dizziness, felt to be benign paroxysmal positional vertigo. Also felt to have acute renal failure. PE is being ruled out. The patient is getting hydrated so that patient can have a more definitive test. The CT scan of the chest. Otherwise patient's dizziness is completely gone. REVIEW OF SYSTEMS: Done for constitutional, cardiovascular, GI, pulmonary; relevant findings as above. Current medications are reviewed. PHYSICAL EXAMINATION: Temperature 98.2, pulse 68, respiration 16, blood pressure 127/73, pulse ox 100% on room air. GENERAL APPEARANCE: Sitting up, comfortable. EYES: Pupils equal, conjunctivae normal. NECK: JVD not raised. Mass not palpable. RESPIRATORY: Effort normal. LUNGS: Clear. CARDIOVASCULAR: First and second sounds are normal, no edema. ABDOMEN: Soft, nontender. Liver and spleen not palpable. PSYCHIATRY: Alert and oriented x3. Mood and affect was normal. INVESTIGATIONS: White count 4.7, hemoglobin 11.1, potassium 4.2, BUN 18, creatinine 1.08. Accu-Cheeks are noted. ASSESSMENT: 1. Acute dizziness, likely from benign paroxysmal positional vertigo. 2. Acute renal failure from patient being on diuretics and ARBS. 3. Rule out pulmonary embolism. 4. Diabetes mellitus type 2 on oral hypoglycemic. 5. Essential hypertension. 6. Hypothyroidism. 7. Primary osteoarthritis. 8. IV heparin monitoring. PLAN: Continue with IV fluids, repeat electrolytes in the morning. The patient is not really felt to have PE. Care was discussed with the patient. MMODL / IJN: [id number] /
--- NOTE | 2018-09-29 18:57 | DS ---
DISCHARGE SUMMARY DATE OF ADMISSION: 09/24/2018 DATE OF DISCHARGE: 09/27/2018 FINAL DIAGNOSES: 1. Acute renal failure prerenal from medications. 2. Acute dizziness from benign paroxysmal positional vertigo. 3. Diabetes mellitus type 2 on oral hypoglycemic. 4. Essential hypertension. 5. Hypothyroidism. 6. Primary osteoarthritis. 7. Suspect chronic kidney disease stage 3 from nephrosclerosis. HOSPITAL COURSE: This patient presented with acute dizziness. PE was felt to be less likely and felt to be more likely to be benign paroxysmal vertigo. V/Q scan was less probability. Did have a CT angio of the chest negative for PE. Creatinine did come down for holding the diuretics and arbs did come down from 1.36 down to 1.06. The patient's symptoms completely resolved. CONSULTATION: Dr. Ramirez from Pulmonary. PHYSICAL EXAMINATION: Temperature 98.3, pulse 79, respiration 16, blood pressure 140/65, pulse ox 100 percent on room air. Lungs fair entry. INVESTIGATIONS: BUN 18, creatinine 1.08. DISCHARGE MEDICATIONS: 1. Metformin 1000 mg b.i.d. 2. Synthroid 50 mcg a day. 3. Losartan 50 mg a day. 4. Zocor 20 mg q.h.s. 5. Aspirin 81 mg a day. DISCONTINUED MEDICATIONS: Aspirin 325 mg, triamterene hydrochlorothiazide, and potassium. FOLLOW: Dr. Arias on October 18, 2018, follow up with Dr. Martín Bojorquez on October 10, 2018. Labs, BMP in a week. Copy to Dr. Bojorquez. MMPREM / BRIANN: [id number] /
== END 2018-09-27 19:00 | disposition home or self-care (01) ==
LOC: EC 15:22 → 3SCARD 20:35 → INTOOBSV 20:35
PROVIDERS: ADMIT Hospitalist; ATTEND Hospitalist
DX: N17.9 Acute kidney failure, unspecified (principal); H81.10 Benign paroxysmal vertigo, unspecified ear; E86.0 Dehydration; I95.9 Hypotension, unspecified; E11.9 Type 2 diabetes mellitus without complications; E03.9 Hypothyroidism, unspecified; I10 Essential (primary) hypertension; R91.1 Solitary pulmonary nodule; R79.89 Other specified abnormal findings of blood chemistry; J44.9 Chronic obstructive pulmonary disease, unspecified; M19.042 Primary osteoarthritis, left hand; M19.041 Primary osteoarthritis, right hand; T50.905A Adverse effect of unspecified drugs, medicaments and biological substances, initial encounter; Z79.82 Long term (current) use of aspirin; Z79.84 Long term (current) use of oral hypoglycemic drugs; Z79.890 Hormone replacement therapy; Z79.899 Other long term (current) drug therapy; Z88.5 Allergy status to narcotic agent; Z85.41 Personal history of malignant neoplasm of cervix uteri; Z96.652 Presence of left artificial knee joint; Z80.0 Family history of malignant neoplasm of digestive organs; Z82.0 Family history of epilepsy and other diseases of the nervous system; Z81.8 Family history of other mental and behavioral disorders; Z87.891 Personal history of nicotine dependence
CPT/HCPCS: 96361 ×2; 96366 ×5; 96376; 96365; 99285; 36415; 93005; 85379; 83880; 80053; 80048 ×3; 83735; 84484; 85025 ×4; 85610; 85730 ×4; 71046; 93970; 71275; 78582; G0378 ×4; A9540; A9567; J1644 ×5; Q9967

== ENCOUNTER 2021-04-10 09:54 | Emergency (ER) | payer MEDICARE ==
[2021-04-10 10:01] VITALS: TEMP 99.1
--- NOTE | 2021-04-10 10:45 | ED ---
General Adult HPI - General Chief complaint: Upper Respiratory Infection Stated complaint: Cough/sob/pain down arm Time Seen by Provider: 04/10/21 10:15 Source: patient, RN notes reviewed, old records reviewed Mode of arrival: ambulatory Limitations: no limitations - History of Present Illness Initial comments: 80-year-old female presenting with cough, congestion over the past several days. Patient denies fever. She states the cough is nonproductive. She denies central chest pain. Yesterday she developed some right arm pain followed by left arm pain associated with her cough and dyspnea. She previously had been vaccinated against coronavirus. She is uncertain if she has been exposed to coronavirus. She does report some nasal congestion as well. - Related Data Home Medications Medication Instructions Recorded Confirmed metFORMIN HCL [Glucophage] 1,000 mg PO BID 05/20/14 09/24/18 Levothyroxine Sodium [Synthroid] 50 mcg PO DAILY 09/24/18 09/24/18 Losartan Potassium 50 mg PO DAILY 09/24/18 09/24/18 Simvastatin [Zocor] 20 mg PO HS 09/24/18 09/24/18 Previous Rx's Medication Instructions Recorded Aspirin 81 mg PO DAILY #1 chewable 09/27/18 Allergies Allergy/AdvReac Type Severity Reaction Status Date / Time codeine Allergy Unknown Verified 04/10/21 09:57 Review of Systems ROS Statement: Those systems with pertinent positive or pertinent negative responses have been documented in the HPI. ROS Other: All systems not noted in ROS Statement are negative. Past Medical History Past Medical History: Cancer, Diabetes Mellitus, Hypertension, Thyroid Disorder Additional Past Medical History / Comment(s): cervical cancer, arthritis History of Any Multi-Drug Resistant Organisms: None Reported Past Surgical History: Orthopedic Surgery Additional Past Surgical History / Comment(s): 3 knee replacements and revisions Past Anesthesia/Blood Transfusion Reactions: No Reported Reaction Past Psychological History: No Psychological Hx Reported Smoking Status: Never smoker Past Alcohol Use History: None Reported Past Drug Use History: None Reported - Past Family History Mother Family Medical History: Cancer, Dementia Additional Family Medical History / Comment(s): pancreatic cancer and alzheimers General Exam Limitations: no limitations General appearance: alert, in no apparent distress Head exam: Present: atraumatic, normocephalic Eye exam: Present: normal appearance, PERRL ENT exam: Present: normal exam Neck exam: Present: normal inspection. Absent: tenderness, meningismus Respiratory exam: Present: normal lung sounds bilaterally. Absent: respiratory distress, wheezes Cardiovascular Exam: Present: regular rate, normal rhythm GI/Abdominal exam: Present: soft. Absent: distended, tenderness, guarding, rebound Extremities exam: Present: normal inspection, normal capillary refill. Absent: pedal edema Neurological exam: Present: alert, oriented X3, CN II-XII intact. Absent: motor sensory deficit Psychiatric exam: Present: normal affect, normal mood Skin exam: Present: warm, dry, intact. Absent: cyanosis, diaphoretic Course Vital Signs 04/10/21 04/10/21 09:57 10:15 Temperature 99.1 F Pulse Rate 109 H Respiratory 18 20 Rate O2 Sat by Pulse 96 Oximetry EKG Findings - EKG Comments: EKG Findings:: Normal sinus rhythm, rate of 93, RI interval 192, QRS duration 92, QTC 467, no ST segment elevation. Medical Decision Making - Medical Decision Making 80-year-old female with cough and congestion. She has been vaccinated against coronavirus. She does test positive in the emergency department. She is a candidate for monoclonal antibodies these will be infused. She has normal labs, clear chest x-ray, stable vitals. Return parameters discussed. She will follow-up with the primary care physician. She will quarantine. - Lab Data Result diagrams: 04/10/21 10:48 04/10/21 10:48 Lab Results 04/10/21 04/10/21 04/10/21 Range/Units 10:48 10:48 10:48 WBC 6.3 (3.8-10.6) k/uL RBC 4.10 (3.80-5.40) m/uL Hgb 13.6 (11.4-16.0) gm/dL Hct 39.6 (34.0-46.0) % MCV 96.6 (80.0-100.0) fL MCH 33.3 (25.0-35.0) pg MCHC 34.4 (31.0-37.0) g/dL RDW 13.5 (11.5-15.5) % Plt Count 197 (150-450) k/uL MPV 8.0 Neutrophils % 73 % Lymphocytes % 12 % Monocytes % 10 % Eosinophils % 2 % Basophils % 1 % Neutrophils # 4.6 (1.3-7.7) k/uL Lymphocytes # 0.8 L (1.0-4.8) k/uL Monocytes # 0.6 (0-1.0) k/uL Eosinophils # 0.1 (0-0.7) k/uL Basophils # 0.0 (0-0.2) k/uL Sodium 137 (137-145) mmol/L Potassium 4.4 (3.5-5.1) mmol/L Chloride 104 (98-107) mmol/L Carbon Dioxide 25 (22-30) mmol/L Anion Gap 8 mmol/L BUN 11 (7-17) mg/dL Creatinine 0.90 (0.52-1.04) mg/dL Est GFR (CKD-EPI)AfAm 71 (>60 ml/min/1.73 sqM) Est GFR (CKD-EPI)NonAf 61 (>60 ml/min/1.73 sqM) Glucose 189 H (74-99) mg/dL Calcium 9.7 (8.4-10.2) mg/dL Magnesium 1.5 L (1.6-2.3) mg/dL Total Bilirubin 0.7 (0.2-1.3) mg/dL AST 29 (14-36) U/L ALT 14 (4-34) U/L Alkaline Phosphatase 73 (38-126) U/L Total Protein 6.9 (6.3-8.2) g/dL Albumin 4.2 (3.5-5.0) g/dL Coronavirus (PCR) Detected A (Not Detectd) Disposition Clinical Impression: COVID-19 Disposition: HOME SELF-CARE Condition: Good Instructions (If sedation given, give patient instructions): Coronavirus Disease 2019 (COVID-19) Additional Instructions: Please quarantined for an additional 10 days. Please return with any worsening respiratory issues or new concerns. Is patient prescribed a controlled substance at d/c from ED?: No Referrals: Martín Bojorquez MD [Primary Care Provider] - 1-2 days Time of Disposition: 11:57
[2021-04-10 11:06] LABS: Basophils % (A) 1 %; Eosinophils # (A) 0.1 k/uL (0-0.7); Eosinophils % (A) 2 %; HCT 39.6 % (34.0-46.0); HGB 13.6 gm/dL (11.4-16.0); Lymphocytes # (A) 0.8 k/uL (1.0-4.8); Lymphocytes % (A) 12 %; MCH 33.3 pg (25.0-35.0); MCHC 34.4 g/dL (31.0-37.0); MCV 96.6 fL (80.0-100.0); Monocytes # (A) 0.6 k/uL (0-1.0); Monocytes % (A) 10 %; Neutrophils # (A) 4.6 k/uL (1.3-7.7); Neutrophils % (A) 73 %; Platelet Count 197 k/uL (150-450); RDW 13.5 % (11.5-15.5); WBC 6.3 k/uL (3.8-10.6)
[2021-04-10 11:18] LABS: Albumin 4.2 g/dL (3.5-5.0); Calcium 9.7 mg/dL (8.4-10.2); Total Bilirubin 0.7 mg/dL (0.2-1.3); Total Protein 6.9 g/dL (6.3-8.2)
[2021-04-10 11:23] LABS: Potassium 4.4 mmol/L (3.5-5.1)
[2021-04-10 11:24] LABS: Magnesium 1.5 mg/dL (1.6-2.3)
--- NOTE | 2021-04-10 11:41 | XR ---
EXAMINATION TYPE: XR chest 2V DATE OF EXAM: 04/10/2021 COMPARISON: Chest x-ray 09/24/2018 HISTORY: Chest pain, weakness and cough TECHNIQUE: Frontal and lateral views of the chest are obtained. FINDINGS: There is no focal air space opacity, pleural effusion, or pneumothorax seen. The cardiac silhouette size is within normal limits. Patient is rotated. Aorta is dense. There is eventration of the right hemidiaphragm. Thoracic spondylosis is noted. The osseous structures are intact. IMPRESSION: No acute cardiopulmonary process.
[2021-04-10 11:56] LABS: INR 0.9 (<1.2); Partial Thromboplastin Time 22.3 sec (22.0-30.0); Prothrombin Time 9.7 sec (9.0-12.0)
[2021-04-10] MEDS ORDERED: SODIUM CHLORIDE 0.9% 50 ML IVPB ONE (12:00)
[2021-04-10] MEDS ORDERED: CASIRIVIMAB/IMDEVIMAB (EUA) 1,200 MG in SODIUM CHLORIDE 0.9% 100 ML IVPB ONE (12:20)
[2021-04-10 14:14] VITALS: BP 194/98; PULSE 100; RESP 18
== END 2021-04-10 14:14 | disposition home or self-care (01) ==
LOC: EC 09:54
DX: U07.1 COVID-19 (principal); I10 Essential (primary) hypertension; E11.9 Type 2 diabetes mellitus without complications; E07.9 Disorder of thyroid, unspecified; Z79.82 Long term (current) use of aspirin; Z79.84 Long term (current) use of oral hypoglycemic drugs; Z88.5 Allergy status to narcotic agent; Z85.41 Personal history of malignant neoplasm of cervix uteri
CPT/HCPCS: 99285; 96365; 36415; 93005; 80053; 83735; 84484; 85025; 85610; 85730; 87635; 71046; Q0243

== ENCOUNTER 2021-10-29 15:52 | Emergency (ER) | payer MEDICARE ==
[2021-10-29 16:17] VITALS: BP 147/77; PULSE 68; RESP 16; TEMP 97.5
--- NOTE | 2021-10-29 17:19 | ED ---
General Adult HPI - General Chief complaint: Extremity Problem,Nontraumatic Stated complaint: Possible DVT Time Seen by Provider: 10/29/21 17:10 Source: patient, RN notes reviewed, old records reviewed Mode of arrival: ambulatory Limitations: no limitations - History of Present Illness Initial comments: 81-year-old well-appearing female, in no acute distress, presents to the ER, sent by primary care doctor to rule out DVT of left leg. Patient states that she has been having pain in her left hip and groin area with flexion of the leg with some swelling for 1 month. She denies any injuries. She does have history of cervical cancer, diabetes and hypertension. -: month(s) (1) Location: left, lower extremity (hip/groin) Radiation: non-radiation Severity scale (1-10): 6 Quality: aching Consistency: intermittent Worsens with: movement (flexion) Associated Symptoms: denies other symptoms Treatments Prior to Arrival: none - Related Data Home Medications Medication Instructions Recorded Confirmed metFORMIN HCL [Glucophage] 1,000 mg PO BID 05/20/14 04/10/21 Levothyroxine Sodium [Synthroid] 50 mcg PO DAILY 09/24/18 04/10/21 Simvastatin [Zocor] 20 mg PO HS 09/24/18 04/10/21 ALPRAZolam [Xanax] 0.25 mg PO BID PRN 04/10/21 04/10/21 sitaGLIPtin [Januvia] 50 mg PO DAILY 04/10/21 04/10/21 Allergies Allergy/AdvReac Type Severity Reaction Status Date / Time codeine AdvReac Hallucinati Verified 10/29/21 16:13 ons Review of Systems ROS Statement: Those systems with pertinent positive or pertinent negative responses have been documented in the HPI. ROS Other: All systems not noted in ROS Statement are negative. Past Medical History Past Medical History: Cancer, Diabetes Mellitus, Hypertension, Thyroid Disorder Additional Past Medical History / Comment(s): cervical cancer, arthritis History of Any Multi-Drug Resistant Organisms: None Reported Past Surgical History: Orthopedic Surgery Additional Past Surgical History / Comment(s): 3 knee replacements and revisions Past Anesthesia/Blood Transfusion Reactions: No Reported Reaction Past Psychological History: No Psychological Hx Reported Smoking Status: Never smoker Past Alcohol Use History: None Reported Past Drug Use History: None Reported - Past Family History Mother Family Medical History: Cancer, Dementia Additional Family Medical History / Comment(s): pancreatic cancer and alzheimers General Exam Limitations: no limitations General appearance: alert, in no apparent distress Head exam: Present: atraumatic Eye exam: Absent: scleral icterus, conjunctival injection, periorbital swelling Respiratory exam: Present: normal lung sounds bilaterally. Absent: respiratory distress, wheezes, rales, rhonchi, stridor, chest wall tenderness, accessory muscle use, decreased breath sounds Cardiovascular Exam: Present: regular rate. Absent: JVD GI/Abdominal exam: Present: soft. Absent: distended, tenderness Extremities exam: Present: normal capillary refill, pedal edema (1 + blle) Left Hip exam: Present: full ROM, tenderness (Left groin worse with flexion), pelvic stability. Absent: deformity, crepitus, dislocation, external rotation, internal rotation, shortening Upper Leg exam: Present: full ROM, swelling. Absent: tenderness Knee exam: Present: full ROM, swelling, full knee extension. Absent: tenderness, abrasion, laceration, ecchymosis, deformity, erythema, effusion, pain/laxity with valgus, pain/laxity with varus Lower Leg exam: Present: full ROM. Absent: tenderness, swelling Ankle exam: Absent: tenderness Neurovascular tendon exam: Absent: no vascular compromise, abnormal cap refill, extremity cold to touch, pallor, foot drop Back exam: Absent: tenderness Neurological exam: Present: alert, oriented X3 Psychiatric exam: Present: normal affect, normal mood Skin exam: Present: warm, dry, normal color. Absent: rash, cyanosis, diaphoretic, petechiae, pallor Course Vital Signs 10/29/21 16:13 Temperature 97.5 F L Pulse Rate 68 Respiratory 16 Rate Blood Pressure 147/77 O2 Sat by Pulse 98 Oximetry Medical Decision Making - Medical Decision Making Well-appearing 81-year-old female presents with left hip flexor muscle tenderness for one month. She was sent by her primary care doctor who she states also believes this is likely a hip flexor but did want to rule out DVT. She denies any injuries. She does have a history of cervical cancer. She states that she is able to ambulate and that the pain is moving worse when she tries to lift her leg off the bed or and it is painful in the left groin. Patient has no pain behind the knee, no calf pain. There is good capillary refill and leg is pink and warm. Ultrasound is negative for DVT. This is likely a hip flexor strain. Patient will be discharged home to follow up with her primary care doctor. I did tell her to return to the emergency room with any new or concerning symptoms including numbness, increased pain or inability to bear weight. Patient is agreeable to this plan of care. Case discussed with Dr. Solano. Disposition Clinical Impression: Left groin pain Disposition: HOME SELF-CARE Condition: Good Instructions (If sedation given, give patient instructions): Groin Pain (ED) Additional Instructions: At this time I do not have a cause for your left groin pain. This may be a hip flexor strain. The below exercise may help improve your pain. In addition to the exercise, you can use [id number] icy hot, Sharon balm cream or Tylenol and Motrin. Follow-up with your primary care doctor next week and please return to the em ergency room with any new or concerning symptoms including increased pain or inability to ambulate. Hip flexor stretch (edge of table) Lie flat on your back on a table or flat bench, with your knees and lower legs hanging off the edge of the table. Grab your good leg at the knee, and pull that knee back toward your chest. ... Hold the stretch for at least 15 to 30 seconds. Repeat 2 to 4 times. Is patient prescribed a controlled substance at d/c from ED?: No Referrals: Martín Bojorquez MD [Primary Care Provider] - 1-2 days Time of Disposition: 17:50
--- NOTE | 2021-10-29 17:26 | US ---
EXAMINATION TYPE: US venous doppler duplex LE LT DATE OF EXAM: 10/29/2021 4:56 PM COMPARISON: US 2019 CLINICAL HISTORY: R/O dvt left leg swelling . Left leg pain and swelling SIDE PERFORMED: Left TECHNIQUE: The lower extremity deep venous system is examined utilizing real time linear array sonog martín with graded compression, doppler sonography and color-flow sonography. VESSELS IMAGED: Common Femoral Vein Deep Femoral Vein Greater Saphenous Vein * Femoral Vein Popliteal Vein Small Saphenous Vein * Proximal Calf Veins (* superficial vessels) Left Leg: Appears negative for DVT IMPRESSION: No evidence of deep vein thrombosis in the left leg.
== END 2021-10-29 17:57 | disposition home or self-care (01) ==
LOC: EC 15:52
DX: M25.552 Pain in left hip (principal); Z79.84 Long term (current) use of oral hypoglycemic drugs; Z88.5 Allergy status to narcotic agent; E11.9 Type 2 diabetes mellitus without complications; I10 Essential (primary) hypertension; E07.9 Disorder of thyroid, unspecified; Z85.41 Personal history of malignant neoplasm of cervix uteri
CPT/HCPCS: 99284

== ENCOUNTER 2023-03-21 12:09 | Emergency (ER) | payer MEDICARE ==
[2023-03-21 12:13] VITALS: TEMP 98.4
[2023-03-21] MEDS ORDERED: SODIUM CHLORIDE 0.9% 1,000 ML IV STA (12:28)
[2023-03-21] MEDS ORDERED: MECLIZINE 12.5 MG TAB PO STA (12:28)
--- NOTE | 2023-03-21 12:38 | ED ---
General Adult HPI - General Chief complaint: Dizziness Stated complaint: Dizziness Time Seen by Provider: 03/21/23 12:16 Source: patient, RN notes reviewed, old records reviewed Mode of arrival: wheelchair Limitations: no limitations - History of Present Illness Initial comments: Patient is an 82-year-old female who presents emergency Department complaining of vertigo. It has been ongoing for the last 2 days. Has been intermittent. No known positional aspect to it. Has been complaining of some congestion right side of her face and states that shortly she contributes intrinsic movements of her head toward that side. Currently does not have vertigo but had bad vertigo throughout the morning this morning. Since resolved. Describes it as a room spinning sensation. Endorses rhinorrhea, right-sided facial congestion. Denies any chest pain but does endorse mild cough. No shortness breath. Denies abdominal pain, nausea, vomiting. Denies any weakness or numbness. Physical other acute complaints at this time. Denies any head trauma or being on blood thinners. Presents for further evaluation at this time. No history of vertigo per patient. - Related Data Home Medications Medication Instructions Recorded Confirmed metFORMIN HCL [Glucophage] 1,000 mg PO BID 05/20/14 04/10/21 Levothyroxine Sodium [Synthroid] 50 mcg PO DAILY 09/24/18 04/10/21 Simvastatin [Zocor] 20 mg PO HS 09/24/18 04/10/21 ALPRAZolam [Xanax] 0.25 mg PO BID PRN 04/10/21 04/10/21 sitaGLIPtin [Januvia] 50 mg PO DAILY 04/10/21 04/10/21 Previous Rx's Medication Instructions Recorded Meclizine [Antivert] 25 mg PO BID PRN 7 Days #14 tab 03/21/23 Allergies Allergy/AdvReac Type Severity Reaction Status Date / Time codeine AdvReac Hallucinati Verified 03/21/23 12:13 ons Review of Systems ROS Statement: Those systems with pertinent positive or pertinent negative responses have been documented in the HPI. Review of Systems: CONST: Denies fever EYES: Denies blurry vision ENT: Denies nasal congestion C/V: Denies Chest pain RESP: Denies shortness of breath GI: Denies abdominal pain : Denies dysuria SKIN: Denies rash. MSK: Denies joint pain. NEURO: Endorses vertigo ROS Other: All systems not noted in ROS Statement are negative. Past Medical History Past Medical History: Cancer, Diabetes Mellitus, Hypertension, Thyroid Disorder Additional Past Medical History / Comment(s): cervical cancer, arthritis History of Any Multi-Drug Resistant Organisms: None Reported Past Surgical History: Orthopedic Surgery Additional Past Surgical History / Comment(s): 3 knee replacements and revisions Past Anesthesia/Blood Transfusion Reactions: No Reported Reaction Past Psychological History: No Psychological Hx Reported Smoking Status: Never smoker Past Alcohol Use History: None Reported Past Drug Use History: None Reported - Past Family History Mother Family Medical History: Cancer, Dementia Additional Family Medical History / Comment(s): pancreatic cancer and alzheimers General Exam - General Exam Comments Initial Comments: General: Appears in no acute distress. HEAD: Normal with no signs of head trauma. EYES: PERRLA, EOMI, conjunctiva normal, no discharge. Pupils are 2 mm and equal bilaterally. ENT: Hearing grossly intact, normal oropharynx. Some fluid is present behind the right tympanic membrane. RESPIRATORY: Clear breath sounds bilaterally. No wheezes, rales, or rhonchi. C/V: Regular rate and rhythm. S1 and S2 auscultated, no edema, peripheral pulses 2+ and intact throughout ABD: Abd is soft, nontender, nondistended EXT: Normal range of motion, no obvious deformity SKIN: No rashes or lesions observed on exposed skin. NEURO: Alert and oriented x 4. Cranial nerves II-XII intact. No focal sensory or strength deficits. NIH is 0. GCS 15. Able to ambulate without difficulty. Cerebellar function is within normal limits as evident by normal finger to nose testing, etam-ra-llef testing. There is absence of dysdiadochokinesia. Romberg test is negative. Limitations: no limitations Course Vital Signs 03/21/23 03/21/23 03/21/23 12:11 14:14 15:59 Temperature 98.4 F Pulse Rate 68 64 68 Respiratory 20 18 18 Rate Blood Pressure 173/85 144/71 156/90 O2 Sat by Pulse 97 99 97 Oximetry Medical Decision Making - Medical Decision Making Was pt. sent in by a medical professional or institution (, PA, SAMPLE FINISHER, urgent care, hospital, or group home...) When possible be specific @ -No Did you speak to anyone other than the patient for history (EMS, parent, family, police, friend...)? What history was obtained from this source @ -No Did you review nursing and triage notes (agree or disagree)? Why? @ -I reviewed and agree with nursing and triage notes Were old charts reviewed (outside hosp., previous admission, EMS record, old EKG, old radiological studies, urgent care reports/EKG's, group home records)? Report findings @ -No old charts were reviewed Differential Diagnosis (chest pain, altered mental status, abdominal pain women, abdominal pain men, vaginal bleeding, weakness, fever, dyspnea, syncope, headache, dizziness, GI bleed, back pain, seizure, CVA, palpatations, mental health, musculoskeletal)? @ -Differential Dizziness: Benign paroxysmal positional Vertigo, Menieres disease, otitis media, acoustic neuroma, vertebrobasilar insufficiency, cerebellar stroke, encephalitis, hypovolemic, arrhythmia, coronary artery syndrome, anemia, this is not meant to be an all-inclusive list EKG interpreted by me (3pts min.). @ -As above X-rays interpreted by me (1pt min.). @ -Chest x-ray reveals no obvious acute cardio pulmonary process. CT interpreted by me (1pt min.). @ -CT imaging negative for any obvious acute intracranial process on CTA and CT without contrast. U/S interpreted by me (1pt. min.). @ -None done What testing was considered but not performed or refused? (CT, X-rays, U/S, labs)? Why? @ -None What meds were considered but not given or refused? Why? @ -None Did you discuss the management of the patient with other professionals (professionals i.e. , PA, SAMPLE FINISHER, lab, RT, psych nurse, social sciences instructor, lease attendant, teacher, credit review officer, family independence case manager)? Give summary @ -No Was smoking cessation discussed for >3mins.? @ -No Was critical care preformed (if so, how long)? @ -No Were there social determinants of health that impacted care today? How? (Homelessness, low income, unemployed, alcoholism, drug addiction, transportation, low edu. Level, literacy, decrease access to med. care, alf, rehab)? @ -No Was there de-escalation of care discussed even if they declined (Discuss DNR or withdrawal of care, Hospice)? DNR status @ -No What co-morbidities impacted this encounter? (DM, HTN, Smoking, COPD, CAD, Cancer, CVA, ARF, Chemo, Hep., AIDS, mental health diagnosis, sleep apnea, morbid obesity)? @ -None Was patient admitted / discharged? Hospital course, mention meds given and route, prescriptions, significant lab abnormalities, going to OR and other pertinent info. @ -Based on the patient's presentation and physical exam, she presents with new onset vertigo. Exam is relatively unremarkable as revealing been ongoing for the last few days. Also some congestion. Seems to be likely peripheral however patient states that she does not know her exact physician; causing it. Discussed possibilities and she is concerned for possible stroke patient does have a history of a TIA. Therefore we will obtain CT imaging of the brain as well as basic labs. She'll be sent likely treatment with meclizine and the fluid bolus. Symptoms are relatively unremarkable at this time. Patient was in agreement this plan. Vital signs within acceptable limits. Patient's imaging is unremarkable. Laboratory studies within acceptable limits. On reevaluation, patient is feeling improved. She would like to go home. I believe this is reasonable. Patiently discharged home at this time. Strict return precautions discussed.Discussed her vertiginous symptoms likely secondary to her head congestion which is likely secondary to virus. Recommended she obtain Claritin or other decongestant. She was in agreement this plan. No symptoms at this time. I will provide the patient with a prescription for meclizine. I instructed the patient to follow up with their PCP in the next 1-3 days. I explained that the patient should return to the emergency department if they experience any worsening symptoms. Strict return precautions were discussed with the patient. The patient expressed understanding of these instructions. I answered all questions that the patient had. The patient was discharged home in good c ondition with their prescriptions and follow up information. Undiagnosed new problem with uncertain prognosis? @ -No Drug Therapy requiring intensive monitoring for toxicity (Heparin, Nitro, Insulin, Cardizem)? @ -No Were any procedures done? @ -No Diagnosis/symptom? @ -Vertigo Acute, or Chronic, or Acute on Chronic? @ -Acute Uncomplicated (without systemic symptoms) or Complicated (systemic symptoms)? @ -Complicated Side effects of treatment? @ -none Exacerbation, Progression, or Severe Exacerbation] @ -no Poses a threat to life or bodily function? @ -no - Lab Data Result diagrams: 03/21/23 12:40 03/21/23 12:40 Lab Results 03/21/23 03/21/23 03/21/23 Range/Units 12:40 12:40 12:40 WBC 7.0 (3.8-10.6) k/uL RBC 4.09 (3.80-5.40) m/uL Hgb 13.4 (11.4-16.0) gm/dL Hct 40.5 (34.0-46.0) % MCV 99.0 (80.0-100.0) fL MCH 32.8 (25.0-35.0) pg MCHC 33.2 (31.0-37.0) g/dL RDW 13.0 (11.5-15.5) % Plt Count 194 (150-450) k/uL MPV 8.7 Neutrophils % 65 % Lymphocytes % 24 % Monocytes % 8 % Eosinophils % 2 % Basophils % 0 % Neutrophils # 4.6 (1.3-7.7) k/uL Lymphocytes # 1.6 (1.0-4.8) k/uL Monocytes # 0.5 (0-1.0) k/uL Eosinophils # 0.1 (0-0.7) k/uL Basophils # 0.0 (0-0.2) k/uL Sodium 137 (137-145) mmol/L Potassium 4.1 (3.5-5.1) mmol/L Chloride 102 (98-107) mmol/L Carbon Dioxide 27 (22-30) mmol/L Anion Gap 8 mmol/L BUN 20 H (7-17) mg/dL Creatinine 0.98 (0.52-1.04) mg/dL Est GFR (CKD-EPI)AfAm 63 (>60 ml/min/1.73 sqM) Est GFR (CKD-EPI)NonAf 54 (>60 ml/min/1.73 sqM) Glucose 158 H (74-99) mg/dL Calcium 9.6 (8.4-10.2) mg/dL Total Bilirubin 0.6 (0.2-1.3) mg/dL AST 23 (14-36) U/L ALT 18 (4-34) U/L Alkaline Phosphatase 70 (38-126) U/L Total Protein 6.6 (6.3-8.2) g/dL Albumin 4.0 (3.5-5.0) g/dL Urine Color Colorless Urine Appearance Cloudy H (Clear) Urine pH 5.0 (5.0-8.0) Ur Specific [place] 1.010 (1.001-1.035) Urine Protein Negative (Negative) Urine Glucose (UA) 2+ H (Negative) Urine Ketones Negative (Negative) Urine Blood Negative (Negative) Urine Nitrite Negative (Negative) Urine Bilirubin Negative (Negative) Urine Urobilinogen <2.0 (<2.0) mg/dL Ur Leukocyte Esterase Negative (Negative) Urine RBC <1 (0-5) /hpf Urine WBC 1 (0-5) /hpf Ur Squamous Epith Cells 2 (0-4) /hpf Urine Bacteria Few H (None) /hpf Urine Mucus Rare H (None) /hpf Influenza Type A (PCR) (Not Detectd) Influenza Type B (PCR) (Not Detectd) RSV (PCR) (Not Detectd) SARS-CoV-2 (PCR) (Not Detectd) 03/21/23 Range/Units 12:40 WBC (3.8-10.6) k/uL RBC (3.80-5.40) m/uL Hgb (11.4-16.0) gm/dL Hct (34.0-46.0) % MCV (80.0-100.0) fL MCH (25.0-35.0) pg MCHC (31.0-37.0) g/dL RDW (11.5-15.5) % Plt Count (150-450) k/uL MPV Neutrophils % % Lymphocytes % % Monocytes % % Eosinophils % % Basophils % % Neutrophils # (1.3-7.7) k/uL Lymphocytes # (1.0-4.8) k/uL Monocytes # (0-1.0) k/uL Eosinophils # (0-0.7) k/uL Basophils # (0-0.2) k/uL Sodium (137-145) mmol/L Potassium (3.5-5.1) mmol/L Chloride (98-107) mmol/L Carbon Dioxide (22-30) mmol/L Anion Gap mmol/L BUN (7-17) mg/dL Creatinine (0.52-1.04) mg/dL Est GFR (CKD-EPI)AfAm (>60 ml/min/1.73 sqM) Est GFR (CKD-EPI)NonAf (>60 ml/min/1.73 sqM) Glucose (74-99) mg/dL Calcium (8.4-10.2) mg/dL Total Bilirubin (0.2-1.3) mg/dL AST (14-36) U/L ALT (4-34) U/L Alkaline Phosphatase (38-126) U/L Total Protein (6.3-8.2) g/dL Albumin (3.5-5.0) g/dL Urine Color Urine Appearance (Clear) Urine pH (5.0-8.0) Ur Specific [place] (1.001-1.035) Urine Protein (Negative) Urine Glucose (UA) (Negative) Urine Ketones (Negative) Urine Blood (Negative) Urine Nitrite (Negative) Urine Bilirubin (Negative) Urine Urobilinogen (<2.0) mg/dL Ur Leukocyte Esterase (Negative) Urine RBC (0-5) /hpf Urine WBC (0-5) /hpf Ur Squamous Epith Cells (0-4) /hpf Urine Bacteria (None) /hpf Urine Mucus (None) /hpf Influenza Type A (PCR) Not Detected (Not Detectd) Influenza Type B (PCR) Not Detected (Not Detectd) RSV (PCR) Not Detected (Not Detectd) SARS-CoV-2 (PCR) Not Detected (Not Detectd) - EKG Data -: EKG Interpreted by Me EKG Comments: 12-lead Electrocardiogram Interpretation Note EKG was reviewed and interpreted by myself. 12-lead ECG performed at 1247 is interpreted by me as revealing normal sinus rhythm at a rate of 63 beats per minute. [place] is normal. LA interval is 198 ms, QRS duration is 96 ms, QTc is 443 ms.. There were no ST or T wave abnormalities to suggest myocardial ischemia or injury. R wave progression across the precordium was satisfactory. By my interpretation this EKG is non-diagnostic for acute ischemia. Disposition Clinical Impression: Vertigo Disposition: HOME SELF-CARE Condition: Good Instructions (If sedation given, give patient instructions): Vertigo (ED) Prescriptions: Meclizine [Antivert] 25 mg PO BID PRN 7 Days #14 tab PRN Reason: Vertigo Is patient prescribed a controlled substance at d/c from ED?: No Referrals: Martín Bojorquez MD [Primary Care Provider] - 1-2 days Time of Disposition: 15:31
[2023-03-21 12:49] LABS: Basophils % (A) 0 %; Eosinophils # (A) 0.1 k/uL (0-0.7); Eosinophils % (A) 2 %; HCT 40.5 % (34.0-46.0); HGB 13.4 gm/dL (11.4-16.0); Lymphocytes # (A) 1.6 k/uL (1.0-4.8); Lymphocytes % (A) 24 %; MCH 32.8 pg (25.0-35.0); MCHC 33.2 g/dL (31.0-37.0); Mean Platelet Volume 8.7; Monocytes # (A) 0.5 k/uL (0-1.0); Monocytes % (A) 8 %; Neutrophils # (A) 4.6 k/uL (1.3-7.7); Neutrophils % (A) 65 %; Platelet Count 194 k/uL (150-450); RBC 4.09 m/uL (3.80-5.40)
[2023-03-21 12:59] LABS: Appearance,Urine Cloudy (Clear); Bacteria,Urine Few /hpf; Bilirubin,Urine Negative (Negative); Blood,Urine Negative (Negative); Color,Urine Colorless; Glucose,Urine (UA) 2+ (Negative); Ketones,Urine Negative (Negative); Leukocyte Esterase,Urine Negative (Negative); Mucus,Urine Rare /hpf; Nitrite,Urine Negative (Negative); Protein,Urine Negative (Negative); RBC,Urine <1 /hpf (0-5); Squamous Epithelial Cell,Urine 2 /hpf (0-4); Urobilinogen,Urine <2.0 mg/dL (<2.0); WBC,Urine 1 /hpf (0-5)
[2023-03-21 13:19] LABS: ALT 18 U/L (4-34); AST 23 U/L (14-36); African American GFR (CKD) 63 (>60 ml/min/1.73 sqM); Alkaline Phosphatase 70 U/L (38-126); Anion Gap 8 mmol/L; Blood Urea Nitrogen 20 mg/dL (7-17); Calcium 9.6 mg/dL (8.4-10.2); Carbon Dioxide 27 mmol/L (22-30); Chloride 102 mmol/L (98-107); Glucose 158 mg/dL (74-99); Non-African American GFR(CKD) 54 (>60 ml/min/1.73 sqM); Potassium 4.1 mmol/L (3.5-5.1); Sodium 137 mmol/L (137-145); Total Bilirubin 0.6 mg/dL (0.2-1.3); Total Protein 6.6 g/dL (6.3-8.2)
[2023-03-21 14:20] VITALS: RESP 18
--- NOTE | 2023-03-21 14:21 | XR ---
EXAMINATION TYPE: XR chest 2V DATE OF EXAM: 03/21/2023 2:12 PM COMPARISON: Chest radiographs from 04/10/2021. TECHNIQUE: XR chest 2V Frontal and lateral views of the chest. CLINICAL INDICATION:Female, 82 years old with history of cough; FINDINGS: Lungs/Pleura: There is flattening of the diaphragm with increased lucency of the lungs. No evidence o f pneumothorax, pleural effusion or focal consolidation. Pulmonary vascularity: Unremarkable. Heart/mediastinum: Cardiomediastinal silhouette is unremarkable. Musculoskeletal: No acute osseous pathology. IMPRESSION: 1. No acute cardiopulmonary disease process. 2. COPD changes.
--- NOTE | 2023-03-21 14:50 | CT ---
EXAMINATION TYPE: CT brain wo con CT DLP: 1104.6 mGycm, Automated exposure control for dose reduction was used. DATE OF EXAM: 03/21/2023 2:11 PM COMPARISON: 05/04/2016. CLINICAL INDICATION:Female, 82 years old with history of vertigo, Dizziness. TECHNIQUE: Brain: Axial CT images of the brain were obtained with coronal and sagittal reformats created and rev iewed. Contrast used: None. Oral contrast used: None. FINDINGS: Brain: Extra-axial spaces: No abnormal extra-axial fluid collections. Ventricular system: Within normal limits Cerebral parenchyma: No acute intraparenchymal hemorrhage or mass effect. The mohr-white junction is well differentiated. Cerebellum: Unremarkable. Mass effect: No evidence of midline shift. Intracranial vasculature: Atherosclerotic calcifications of the intracranial vessels. Soft tissues: Normal. Calvarium/osseous structures: No depressed skull fracture. Paranasal sinuses and mastoid air cells: Mild scattered paranasal sinus disease. Visualized orbits: Bilateral aphakia IMPRESSION: 1. No acute intracranial process.
--- NOTE | 2023-03-21 14:57 | CT ---
EXAMINATION TYPE: CT angio head neck CT DLP: 542.7 mGycm, Automated exposure control for dose reduction was used. DATE OF EXAM: 03/21/2023 2:26 PM COMPARISON: CT brain same day.. CLINICAL INDICATION:Female, 82 years old with history of vertigo; PHH, Dizziness. TECHNIQUE: Axially acquired helical CT angiogram of the head and neck was obtained with contrast. Axi al images are supplemented with 3D reconstructions [facility] NASCET criteria used. Contrast used:65ml mL of Isovue 370 with IV Contrast, Oral contrast used: None. FINDINGS: CTA HEAD: No evidence of acute intracranial hemorrhage, mass effect, or midline shift. The ventricles, sulci, a nd cisterns are unremarkable. The visualized portions of the internal carotid arteries, middle cerebral arteries, anterior cerebral arteries, and posterior cerebral arteries are patent. The basilar and vertebral arteries are patent. Postsurgical changes to the globes bilaterally aphakia. CTA NECK: Right Carotid System: The common carotid and external carotid arteries are patent. There is less than 25% stenosis at the c arotid bifurcation secondary to calcified/noncalcified plaque. The rest of the internal carotid arter y is patent. Left Carotid System: The common carotid and external carotid arteries are patent. There is less than 25% stenosis at the c arotid bifurcation secondary to calcified/noncalcified plaque. The rest of the internal carotid arter y is patent. Vertebral arteries are patent without evidence hemodynamically significant stenosis. There is a three-vessel aortic arch. The origins of the great vessels are patent. No evidence of hemo dynamically significant stenosis. Upper thorax: Mild to moderate emphysema changes in lung apices. IMPRESSION: 1. No evidence of dissection of the cervical internal carotid arteries or vertebral arteries or any e vidence of significant stenosis at the carotid bifurcations. 2. No evidence of intracranial high-grade stenosis or intracranial aneurysm.
[2023-03-21 16:00] VITALS: BP 156/90; PULSE 68
== END 2023-03-21 16:00 | disposition home or self-care (01) ==
LOC: EC 12:09
DX: R42 Dizziness and giddiness (principal); J44.9 Chronic obstructive pulmonary disease, unspecified; E11.9 Type 2 diabetes mellitus without complications; I10 Essential (primary) hypertension; E07.9 Disorder of thyroid, unspecified; Z79.84 Long term (current) use of oral hypoglycemic drugs; Z79.890 Hormone replacement therapy; Z88.5 Allergy status to narcotic agent; Z79.899 Other long term (current) drug therapy; Z20.822 Contact with and (suspected) exposure to COVID-19
CPT/HCPCS: 36415; 93005; 80053; 85025; 81001; 87636; 71046; 70496; 70450; 70498; 99285; Q9967

== ENCOUNTER 2023-08-26 15:23 | Emergency (ER) | payer MEDICARE ==
[2023-08-26 15:38] VITALS: TEMP 98.5
[2023-08-26] MEDS ORDERED: RX INFO: IV CONTRAST WAS GIVEN 1 EACH MISC MISCELLANE PRN (16:03)
[2023-08-26] MEDS: MORPHINE SULFATE 2 MG/ML SYRINGE IVP STA (16:40)
[2023-08-26] MEDS: SODIUM CHLORIDE 0.9% 1,000 ML IV STA (16:40)
[2023-08-26] MEDS: LIDOCAINE 4% PATCH TOPICAL STA (16:40)
[2023-08-26 17:00] LABS: Basophils # (A) 0.1 k/uL (0-0.2); Basophils % (A) 1 %; Eosinophils # (A) 0.1 k/uL (0-0.7); Eosinophils % (A) 2 %; HCT 39.5 % (34.0-46.0); HGB 13.3 gm/dL (11.4-16.0); Lymphocytes # (A) 1.8 k/uL (1.0-4.8); Lymphocytes % (A) 25 %; MCH 33.9 pg (25.0-35.0); MCHC 33.7 g/dL (31.0-37.0); MCV 100.5 fL (80.0-100.0); Mean Platelet Volume 8.6; Monocytes # (A) 0.5 k/uL (0-1.0); Monocytes % (A) 7 %; Neutrophils # (A) 4.6 k/uL (1.3-7.7); Neutrophils % (A) 65 %; Platelet Count 181 k/uL (150-450); RBC 3.93 m/uL (3.80-5.40); RDW 12.9 % (11.5-15.5); WBC 7.2 k/uL (3.8-10.6)
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
[2023-08-26 17:12] LABS: INR 0.9 (<1.2); Partial Thromboplastin Time 22.2 sec (22.0-30.0); Prothrombin Time 10.2 sec (10.0-12.5)
[2023-08-26 17:13] LABS: ALT 15 U/L (4-34); AST 21 U/L (14-36); African American GFR (CKD) 74 (>60 ml/min/1.73 sqM); Albumin 3.8 g/dL (3.5-5.0); Alcohol <10 mg/dL; Alkaline Phosphatase 77 U/L (38-126); Anion Gap 5 mmol/L; Blood Urea Nitrogen 18 mg/dL (7-17); Calcium 9.3 mg/dL (8.4-10.2); Carbon Dioxide 29 mmol/L (22-30); Chloride 103 mmol/L (98-107); Glucose 261 mg/dL (74-99); Non-African American GFR(CKD) 64 (>60 ml/min/1.73 sqM); Potassium 3.9 mmol/L (3.5-5.1); Sodium 137 mmol/L (137-145); Total Bilirubin 0.6 mg/dL (0.2-1.3); Total Protein 5.9 g/dL (6.3-8.2)
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
[2023-08-26] MEDS: KETOROLAC 15 MG/ML 1 ML VIAL IVP STA (18:12)
[2023-08-26 18:27] VITALS: RESP 16
[2023-08-26 19:21] VITALS: BP 150/88; PULSE 86
== END 2023-08-26 19:02 | disposition home or self-care (01) ==
LOC: EC 15:23
DX: S29.011A Strain of muscle and tendon of front wall of thorax, initial encounter (principal); E11.9 Type 2 diabetes mellitus without complications; E78.5 Hyperlipidemia, unspecified; I10 Essential (primary) hypertension; E07.9 Disorder of thyroid, unspecified; Z79.899 Other long term (current) drug therapy; Z79.890 Hormone replacement therapy; Z79.84 Long term (current) use of oral hypoglycemic drugs; Z88.5 Allergy status to narcotic agent; Z91.040 Latex allergy status; V43.52XA Car driver injured in collision with other type car in traffic accident, initial encounter; Y92.410 Unspecified street and highway as the place of occurrence of the external cause
CPT/HCPCS: 96361 ×2; 96374 ×2; 96375 ×2; 99285 ×2; 36415; 93005; 86900; 86901; 80053; 84484; 85025; 85610; 85730; 86850; 72170; 71045; 72125; 70450; 71260; G0480; J2270; J1885; Q9967; 80320